=== PATIENT | male | born 1990 | race Caucasian/White ===

== ENCOUNTER 2021-12-19 18:30 | Emergency (ER) | payer SELFPAY ==
--- NOTE | ~2021-12-19 | XR_ITS ---
EXAMINATION: XR RIBS, RIGHT CLINICAL INFORMATION: Right rib injury. Pain. COMPARISON: None TECHNIQUE: 3 views of the right ribs were obtained. PA view of the chest. FINDINGS: Lungs are clear. No consolidation, pneumothorax, or pleural effusion. The cardiomediastinal silhouette and pulmonary vasculature are normal. There is a minimally displaced fracture of the right anterolateral eighth rib. XR/XR ribs RT min 3V w CXR1V IMPRESSION: Minimally displaced right anterolateral eighth rib fracture. Clear lungs.
[2021-12-19 19:35] VITALS: BP 134/90; PULSE 83; RESP 16; TEMP 36.8; O2SAT 97; BMI 54.9
--- NOTE | 2021-12-19 21:12 | ED.GENADULT ---
HPI - General Adult General Chief complaint: General Medical Stated complaint: rib INJ Time Seen by Provider: 12/19/21 20:47 Source: patient Mode of arrival: ambulatory Limitations: no limitations History of Present Illness HPI narrative: 31 y/o male presents to the ER for evaluation of right-sided rib pain for the last 2 weeks. He was playing football with his brother in tackled on his right side. He has had pain in the right rib area since. He reports hurts to take a deep breath, cough, sneeze and sleep at nighttime. He has been taking Tylenol and Motrin with some brief improvement. He denies any chest pain or shortness of breath. Pain is located his right lateral ribs and her worse with movement. He expected the pain to resolve by now so came to the ER for further evaluation. MD complaint: Right-sided rib pain status post football injury Onset (ago): week(s) (2) Location: chest Radiation: non-radiation Severity: moderate Severity scale (1-10): 7 Quality: stabbing and aching Pain Consistency: intermittent Relieving factors: rest Exacerbating factors: movement Associated symptoms: denies other symptoms Treatments prior to arrival: none Related Data Previous Rx's Medication Instructions Recorded ibuprofen 800 mg tablet 800 mg PO Q8H PRN pain #14 tabs 12/19/21 lidocaine 5 % topical patch 1 patch topical DAILY #15 ea 12/19/21 Allergies Allergy/AdvReac Type Severity Reaction Status Date / Time No Known Allergies Allergy Verified 12/19/21 19:35 [No Known Allergies*] Review of Systems Review of Systems: Constitutional: No Fever, No Chills Cardiovascular: + Chest Pain (right lateral), No SOB, No Orthopnea, No Edema Respiratory: No Cough, No Sputum, No Wheezing, No dyspnea Gastrointestinal: No Nausea, No Vomiting, No Diarrhea, No abdominal Pain Genitourinary: No Hematuria Musculoskeletal: No joint pain, No Myalgias Skin: No Skin Lesions, No rash Neuro: No Weakness, No Numbness, No Dizziness, No Headache Heme/Lymph: No Bruising PMFSH Social History Social History Advance Directives: No Physical Exam ED Vital Signs: Vital Signs - 24 hr 12/19/21 19:35 Temperature 98.3 F Pulse Rate 83 Respiratory Rate 16 Blood Pressure 134/90 H Pulse Oximetry 97 Oxygen Delivery Method Room Air BMI result Body Mass Index 54.9 Appearance: Alert. Oriented X3. No acute distress. HEENT: normal external inspection Neck: Normal inspection. Neck supple. CVS: Normal heart rate and rhythm. Pulses normal. Respiratory: No respiratory distress. No ecchymosis on anterior or lateral chest wall. Breath sounds normal. Slight splinting. Tenderness of the middle ribs along the axillary line, no crepitus. Abdomen: morbidly obese. Soft and nontender. +BS x4 Skin: Skin warm and dry. Normal skin color. Normal skin turgor. No rashes. Extremities: Atraumatic, normal range of motion x4. Neuro: Oriented X 3. Grossly normal, nonfocal. Course Course Course Narrative: 31-year-old male presents to the ER with right lateral rib pain status post football injury 2 weeks ago. His lungs are clear on examination. SpO2 97% on room air. Chest x-ray and rib x-ray done is showing a mildly displaced 8th right anteriolateral rib fracture. No pneumothorax. We discussed treatment of rib fractures, pneumonia precautions and pulmonary exercises. He is declining need for narcotic pain medication, has CDL licence. Will give prescription for ibuprofen 800 mg as well as Lidoderm patches. He is stable for discharge home, return precautions were discussed. Critical Care Time Critical Care Time Critical Care Time: No Discharge Plan Discharge Clinical Impression: Fracture of rib Patient Disposition: Home, Self-Care Instructions: Rib Fracture (ED) Additional Instructions: Your x-ray today showed a minimally displaced right anteriolateral 8th rib fracture. Rib fractures can take 4-6 weeks to fully heel. Take the prescribed medication as directed. It is important to take deep breaths several times per hour to help expand your lungs and prevent pneumonia. Prescriptions: New ibuprofen 800 mg tablet 800 mg PO Q8H PRN (Reason: pain) Qty: 14 0RF lidocaine 5 % adhesive patch,medicated 1 patch topical DAILY Qty: 15 0RF Rx Instructions: leave on most painful area for up to 12 hrs Stand Alone Forms: Work/School Release Interventions: ED Discharge Assessment Last Done: 12/19/21 21:29 Discharge Date/Time: 12/19/21 21:30
== END 2021-12-19 21:30 | disposition home or self-care (01) ==
PROVIDERS: Emergency Provider Internal Medicine
DX: S22.31XA Fracture of one rib, right side, initial encounter for closed fracture (principal); W50.0XXA Accidental hit or strike by another person, initial encounter; Y93.61 Activity, american tackle football; Y92.017 Garden or yard in single-family (private) house as the place of occurrence of the external cause; Y99.9 Unspecified external cause status
CPT/HCPCS: 71101; 99282; 99283

== ENCOUNTER 2022-05-09 16:09 | Inpatient (IN) | payer MEDICAID, SELFPAY ==
--- NOTE | ~2022-05-09 | CT_ITS ---
EXAMINATION: CT PELVIS WITHOUT CONTRAST CLINICAL INFORMATION: Abscess. COMPARISON: None TECHNIQUE: Helical scanning was performed with submillimeter collimation through the pelvis. Sagittal and coronal multiplanar 2-D reconstructions were obtained. This CT examination was performed using dose optimization techniques as appropriate, variously including the following: *Automated exposure control *Adjustment of mA and/or kV according to patient size (this includes techniques or standardized protocols for targeted exams where dose is matched to indication/reason for exam; i.e. extremities or head) *Use of iterative reconstruction technique DLP: 1494 mGy-cm FINDINGS: There is significant fat stranding in the left intergluteal region with scattered pockets of subcutaneous air for instance measuring up to 3.5 cm on sagittal image 83, series 6. An organized drainable fluid collection or abscess are not identified. Evaluation of perianal fistula is suboptimal in the absence of IV contrast and under distention of the rectum. The included portions of the bowel are within normal limits. The prostate gland is of normal size with symmetric seminal vesicles. The urinary bladder is adequately distended without significant abnormality. Enlarged fairly symmetric inguinal lymph nodes are likely reactive. No pelvic lymphadenopathy. No acute or aggressive appearing osseous abnormalities. CT/CT pelvis wo IV con IMPRESSION: 1. Fat stranding and pockets of subcutaneous air in the left intergluteal region concerning for cellulitis, necrotizing infection is not excluded. An organized drainable fluid collection or abscess is not identified. 2. Evaluation of perianal fistula is suboptimal in this examination, for which correlation with a dedicated pelvic MRI, perianal fistula protocol is recommended if clinically deemed appropriate. 3. Enlarged inguinal lymph nodes are likely reactive.
[2022-05-09 17:30] VITALS: BP 144/75; PULSE 135; RESP 20; TEMP 38; O2SAT 96; BMI 54.5
--- NOTE | 2022-05-09 17:32 | ED.FALL ---
HPI - Fall General Chief Complaint: Fever <TOBY Huang - Last Filed: 05/09/22 17:37> Stated Complaint: Fall/ Multiple Complaints <TOBY Huang - Last Filed: 05/09/22 17:37> Time Seen by Provider: 05/09/22 18:56 <TOBY Huang - Last Filed: 05/09/22 17:37> Source: patient <Jaswant Baptiste MD - Last Filed: 05/09/22 23:02> Mode of arrival: ambulatory <Jaswant Baptiste MD - Last Filed: 05/09/22 23:02> Limitations: no limitations <Jaswant Baptiste MD - Last Filed: 05/09/22 23:02> History of Present Illness HPI Narrative: Patient otherwise healthy, apparently slipped on the ice 4 days ago addendum the ground had a drywall screw there which punctured his left buttock since then patient noticed lytes in duration in that area notice pus discharge for last 2 days with chills , fever nausea and vomiting, body ache patient had tetanus shot about 5 years ago patient denied upper respiratory symptoms cough <Jaswant Baptiste MD - Last Filed: 05/09/22 23:02> Related Data Home Medications: Previous Rx's Medication Instructions Recorded ibuprofen 800 mg tablet 800 mg PO Q8H PRN pain #14 tabs 12/19/21 lidocaine 5 % topical patch 1 patch topical DAILY #15 ea 12/19/21 <TOBY Huang - Last Filed: 05/09/22 17:37> Allergies/Adverse Reactions: Allergies Allergy/AdvReac Type Severity Reaction Status Date / Time No Known Allergies Allergy Verified 12/19/21 19:35 [No Known Allergies*] <TOBY Huang - Last Filed: 05/09/22 17:37> Review of Systems Review of Systems: Yes all other systems are reviewed and are negative <Jaswant Baptiste MD - Last Filed: 05/09/22 23:02> [facility] Social History Social History: Social History Smoked in Last 30 Days: Yes Use of substances other than those prescribed or required for medical reasons: No Advance Directives: No Advance Directives Information Provided: No <TOBY Huang - Last Filed: 05/09/22 17:37> Physical Exam Vital Signs: Vital Signs: Last Vital Signs Temp 98.7 F 05/09/22 22:53 Pulse 105 H 05/09/22 22:53 Resp 16 05/09/22 22:53 BP 114/57 L 05/09/22 22:53 Pulse Ox 100 05/09/22 22:53 O2 Del Method 05/09/22 22:53 BMI result Body Mass Index 54.5 <TOBY Huang - Last Filed: 05/09/22 17:37> Vital Signs: Last Vital Signs Temp 98.7 F 05/09/22 22:53 Pulse 105 H 05/09/22 22:53 Resp 16 05/09/22 22:53 BP 114/57 L 05/09/22 22:53 Pulse Ox 100 05/09/22 22:53 O2 Del Method 05/09/22 22:53 BMI result Body Mass Index 54.5 <Jaswant Baptiste MD - Last Filed: 05/09/22 23:02> Appearance: Alert. Oriented X3. No acute distress. febrile Eyes: no pallor ENT: Pharynx normal. Oral Mucosa moist Neck: Normal inspection. Neck supple. CVS: Normal heart rate and rhythm. Pulses normal. Respiratory: No respiratory distress. Equal air entry bilateral, no wheezing/rales/rhonchi Abdomen: Soft and nontender. Bowel sounds are present, no mass palpable, no CVA tenderness Skin: Skin warm and dry. 10 x 10 cm indurated area left buttock Normal skin turgor. Extremities: No lower extremity edema. No calf tenderness Neuro: Oriented X 3. No motor deficit. No sensory deficit.No cerebellar signs , cranial nerves II-XII intact <Jaswant Baptiste MD - Last Filed: 05/09/22 23:02> Course Course Course Narrative: JESSIE 17:35PM - 31yoM presenting to the ER with complaints of redness/swelling and an abscess to the left buttock/rectal area that developed gradually after he had a mechanical fall on Friday where he slipped and fell on ice and a drywall nail punctured his left buttocks and he reports he has had some purulent drainage. He reports associated chills and subjective fevers. Reports he is UTD on Tetanus In the triage I do not see an obvious abscess he does have some cellulitis to the left buttocks. Plan: LABS, BLOOD CULTURES ORDERED. Patient will need labs will be sent to the ER for further evaluation treatment. <TOBY Huang - Last Filed: 05/09/22 17:37> Medications Administered Discontinued Medications Generic Name Dose Route Start Last Admin Trade Name Freq PRN Reason Stop Dose Admin Acetaminophen 975 mg 05/09/22 18:08 05/09/22 18:33 Acetaminophen 325 Mg Tablet PO 05/09/22 18:09 975 mg ONCE ONE Administration Sodium Chloride 1,000 mls @ 999 mls/hr 05/09/22 19:09 05/09/22 21:02 Ns IV 05/09/22 20:09 Infused .Q1H1M ONE Infusion Vancomycin HCl 2,000 mg in 520 mls @ 260 mls/hr 05/09/22 19:09 05/09/22 22:42 Vancomycin/Ns IV 05/09/22 21:08 Infused ONCE ONE Infusion Piperacillin Sod/Tazobactam 50 mls @ 100 mls/hr 05/09/22 19:09 05/09/22 20:21 Sod 3.375 gm/ Sodium Chloride IV 05/09/22 19:38 Infused ONCE ONE Infusion Ketorolac Tromethamine 30 mg 05/09/22 22:41 05/09/22 22:52 Ketorolac Tromethamine 30 Mg/Ml Vial IVPUSH 05/09/22 22:42 30 mg ONCE ONE Administration Lidocaine HCl 5 ml 05/09/22 19:45 05/09/22 20:30 Lidocaine Hcl 2% 2 Ml Vial INFILTRATI 05/09/22 19:46 5 ml ONCE ONE Administration <TOBY Huang - Last Filed: 05/09/22 17:37> Medications Administered Discontinued Medications Generic Name Dose Route Start Last Admin Trade Name Freq PRN Reason Stop Dose Admin Acetaminophen 975 mg 05/09/22 18:08 05/09/22 18:33 Acetaminophen 325 Mg Tablet PO 05/09/22 18:09 975 mg ONCE ONE Administration Sodium Chloride 1,000 mls @ 999 mls/hr 05/09/22 19:09 05/09/22 21:02 Ns IV 05/09/22 20:09 Infused .Q1H1M ONE Infusion Vancomycin HCl 2,000 mg in 520 mls @ 260 mls/hr 05/09/22 19:09 05/09/22 22:42 Vancomycin/Ns IV 05/09/22 21:08 Infused ONCE ONE Infusion Piperacillin Sod/Tazobactam 50 mls @ 100 mls/hr 05/09/22 19:09 05/09/22 20:21 Sod 3.375 gm/ Sodium Chloride IV 05/09/22 19:38 Infused ONCE ONE Infusion Ketorolac Tromethamine 30 mg 05/09/22 22:41 05/09/22 22:52 Ketorolac Tromethamine 30 Mg/Ml Vial IVPUSH 05/09/22 22:42 30 mg ONCE ONE Administration Lidocaine HCl 5 ml 05/09/22 19:45 05/09/22 20:30 Lidocaine Hcl 2% 2 Ml Vial INFILTRATI 05/09/22 19:46 5 ml ONCE ONE Administration <Jaswant Baptiste MD - Last Filed: 05/09/22 23:02> Procedures Abscess I/D Site: lower extremity (Left gluteal) <Jaswant Baptiste MD - Last Filed: 05/09/22 23:02> Side (if applicable): left <Jaswant Baptiste MD - Last Filed: 05/09/22 23:02> Local Anesthetic: lidocaine 2% <Jaswant Baptiste MD - Last Filed: 05/09/22 23:02> Amount of anesthesia used (mL): 6 <Jaswant Baptiste MD - Last Filed: 05/09/22 23:02> Technique: incised with blade <Jaswant Baptiste MD - Last Filed: 05/09/22 23:02> Amount of fluid expressed (mL): 5 <Jaswant Baptiste MD - Last Filed: 05/09/22 23:02> Sent for culture/gram staining?: Yes <Jaswant Baptiste MD - Last Filed: 05/09/22 23:02> Irrigation: No <Jaswant Baptiste MD - Last Filed: 05/09/22 23:02> Packing used?: iodoform <Jaswant Baptiste MD - Last Filed: 05/09/22 23:02> Medical Decision Making Lab Data Result Diagrams: : 05/09/22 18:31 05/09/22 18:31 <TOBY Huang - Last Filed: 05/09/22 17:37> Labs: Lab Results 05/09/22 05/09/22 05/09/22 Range/Units 18:30 18:31 18:31 WBC 30.3 H* (4.8-10.8) X10*3/uL RBC 5.10 (4.60-5.80) X10*6/uL Hgb 15.5 (14.0-18.0) g/dl Hct 42.9 (42.0-52.0) % MCV 84.1 (80.0-98.0) fL MCH 30.4 (27.0-33.0) pg MCHC 36.1 H (31.0-36.0) g/dl RDW 12.2 (11.0-16.0) % Plt Count 247 (160-400) X10*3/uL MPV 10.9 (9.4-12.4) fL Immature Gran % (Auto) 0.7 H (0.0-0.4) % Neut % (Auto) 87.1 H (45-73) % Lymph % (Auto) 6.5 L (20-40) % [place] % (Auto) 5.4 (2-11) % Eos % (Auto) 0.1 (0-4) % Baso % (Auto) 0.2 (0-2) % Lymph # (Auto) 2.0 (1.2-4.9) X10*3/uL [place] # (Auto) 1.6 H (0.1-1.2) X10*3/uL Eos # (Auto) 0.0 (0.0-0.4) X10*3/uL Baso # (Auto) 0.1 (0.0-0.2) X10*3/uL Abs Immat Gran (auto) 0.21 H (0.00-0.03) X10*3/uL Absolute Neuts (auto) 26.4 H (2.0-8.3) x10*3/uL Absolute Nucleated RBC 0.000 (0.0-0.012) X10*3/uL Nucleated RBC % (auto) 0.0 (0.0-0.2) /100WBC PT 14.4 H (10.0-13.1) SEC INR 1.2 H (0.9-1.1) Sodium (135-145) mmol/L Potassium (3.3-5.1) mmol/L Chloride (96-108) mmol/L Carbon Dioxide (22-29) mmol/L Anion Gap (12-20) BUN (9-16) mg/dL Creatinine (0.5-1.4) mg/dL Estim Creat Clear Calc Estimated GFR Random Glucose (60-115) mg/dL Lactic Acid 1.6 (0.5-2.0) mmol/L Calcium (8.4-10.2) mg/dL Magnesium (1.6-2.6) mg/dL Total Bilirubin (0.0-1.0) mg/dL AST (5-37) U/L ALT (0-40) U/L Alkaline Phosphatase (39-117) U/L Total Protein (6.5-8.0) g/dL Albumin (3.5-5.0) g/dL Influenza Type A (PCR) (Negative) Influenza Type B (PCR) (Negative) RSV RNA Qual (PCR) (Negative) SARS-CoV-2 RNA (RT-PCR) (Negative) 05/09/22 05/09/22 Range/Units 18:31 19:46 WBC (4.8-10.8) X10*3/uL RBC (4.60-5.80) X10*6/uL Hgb (14.0-18.0) g/dl Hct (42.0-52.0) % MCV (80.0-98.0) fL MCH (27.0-33.0) pg MCHC (31.0-36.0) g/dl RDW (11.0-16.0) % Plt Count (160-400) X10*3/uL MPV (9.4-12.4) fL Immature Gran % (Auto) (0.0-0.4) % Neut % (Auto) (45-73) % Lymph % (Auto) (20-40) % [place] % (Auto) (2-11) % Eos % (Auto) (0-4) % Baso % (Auto) (0-2) % Lymph # (Auto) (1.2-4.9) X10*3/uL [place] # (Auto) (0.1-1.2) X10*3/uL Eos # (Auto) (0.0-0.4) X10*3/uL Baso # (Auto) (0.0-0.2) X10*3/uL Abs Immat Gran (auto) (0.00-0.03) X10*3/uL Absolute Neuts (auto) (2.0-8.3) x10*3/uL Absolute Nucleated RBC (0.0-0.012) X10*3/uL Nucleated RBC % (auto) (0.0-0.2) /100WBC PT (10.0-13.1) SEC INR (0.9-1.1) Sodium 132 L (135-145) mmol/L Potassium 3.9 (3.3-5.1) mmol/L Chloride 100 (96-108) mmol/L Carbon Dioxide 23 (22-29) mmol/L Anion Gap 13 (12-20) BUN 11 (9-16) mg/dL Creatinine 0.91 (0.5-1.4) mg/dL Estim Creat Clear Calc 189.2 Estimated GFR > 60 Random Glucose 126 H (60-115) mg/dL Lactic Acid (0.5-2.0) mmol/L Calcium 8.6 (8.4-10.2) mg/dL Magnesium 1.7 (1.6-2.6) mg/dL Total Bilirubin 1.3 H (0.0-1.0) mg/dL AST 14 (5-37) U/L ALT 21 (0-40) U/L Alkaline Phosphatase 66 (39-117) U/L Total Protein 6.9 (6.5-8.0) g/dL Albumin 3.9 (3.5-5.0) g/dL Influenza Type A (PCR) NEGATIVE (Negative) Influenza Type B (PCR) NEGATIVE (Negative) RSV RNA Qual (PCR) NEGATIVE (Negative) SARS-CoV-2 RNA (RT-PCR) NEGATIVE (Negative) <TOBY Huang - Last Filed: 05/09/22 17:37> Lab Results 05/09/22 05/09/22 05/09/22 Range/Units 18:30 18:31 18:31 WBC 30.3 H* (4.8-10.8) X10*3/uL RBC 5.10 (4.60-5.80) X10*6/uL Hgb 15.5 (14.0-18.0) g/dl Hct 42.9 (42.0-52.0) % MCV 84.1 (80.0-98.0) fL MCH 30.4 (27.0-33.0) pg MCHC 36.1 H (31.0-36.0) g/dl RDW 12.2 (11.0-16.0) % Plt Count 247 (160-400) X10*3/uL MPV 10.9 (9.4-12.4) fL Immature Gran % (Auto) 0.7 H (0.0-0.4) % Neut % (Auto) 87.1 H (45-73) % Lymph % (Auto) 6.5 L (20-40) % [place] % (Auto) 5.4 (2-11) % Eos % (Auto) 0.1 (0-4) % Baso % (Auto) 0.2 (0-2) % Lymph # (Auto) 2.0 (1.2-4.9) X10*3/uL [place] # (Auto) 1.6 H (0.1-1.2) X10*3/uL Eos # (Auto) 0.0 (0.0-0.4) X10*3/uL Baso # (Auto) 0.1 (0.0-0.2) X10*3/uL Abs Immat Gran (auto) 0.21 H (0.00-0.03) X10*3/uL Absolute Neuts (auto) 26.4 H (2.0-8.3) x10*3/uL Absolute Nucleated RBC 0.000 (0.0-0.012) X10*3/uL Nucleated RBC % (auto) 0.0 (0.0-0.2) /100WBC PT 14.4 H (10.0-13.1) SEC INR 1.2 H (0.9-1.1) Sodium (135-145) mmol/L Potassium (3.3-5.1) mmol/L Chloride (96-108) mmol/L Carbon Dioxide (22-29) mmol/L Anion Gap (12-20) BUN (9-16) mg/dL Creatinine (0.5-1.4) mg/dL Estim Creat Clear Calc Estimated GFR Random Glucose (60-115) mg/dL Lactic Acid 1.6 (0.5-2.0) mmol/L Calcium (8.4-10.2) mg/dL Magnesium (1.6-2.6) mg/dL Total Bilirubin (0.0-1.0) mg/dL AST (5-37) U/L ALT (0-40) U/L Alkaline Phosphatase (39-117) U/L Total Protein (6.5-8.0) g/dL Albumin (3.5-5.0) g/dL Influenza Type A (PCR) (Negative) Influenza Type B (PCR) (Negative) RSV RNA Qual (PCR) (Negative) SARS-CoV-2 RNA (RT-PCR) (Negative) 05/09/22 05/09/22 Range/Units 18:31 19:46 WBC (4.8-10.8) X10*3/uL RBC (4.60-5.80) X10*6/uL Hgb (14.0-18.0) g/dl Hct (42.0-52.0) % MCV (80.0-98.0) fL MCH (27.0-33.0) pg MCHC (31.0-36.0) g/dl RDW (11.0-16.0) % Plt Count (160-400) X10*3/uL MPV (9.4-12.4) fL Immature Gran % (Auto) (0.0-0.4) % Neut % (Auto) (45-73) % Lymph % (Auto) (20-40) % [place] % (Auto) (2-11) % Eos % (Auto) (0-4) % Baso % (Auto) (0-2) % Lymph # (Auto) (1.2-4.9) X10*3/uL [place] # (Auto) (0.1-1.2) X10*3/uL Eos # (Auto) (0.0-0.4) X10*3/uL Baso # (Auto) (0.0-0.2) X10*3/uL Abs Immat Gran (auto) (0.00-0.03) X10*3/uL Absolute Neuts (auto) (2.0-8.3) x10*3/uL Absolute Nucleated RBC (0.0-0.012) X10*3/uL Nucleated RBC % (auto) (0.0-0.2) /100WBC PT (10.0-13.1) SEC INR (0.9-1.1) Sodium 132 L (135-145) mmol/L Potassium 3.9 (3.3-5.1) mmol/L Chloride 100 (96-108) mmol/L Carbon Dioxide 23 (22-29) mmol/L Anion Gap 13 (12-20) BUN 11 (9-16) mg/dL Creatinine 0.91 (0.5-1.4) mg/dL Estim Creat Clear Calc 189.2 Estimated GFR > 60 Random Glucose 126 H (60-115) mg/dL Lactic Acid (0.5-2.0) mmol/L Calcium 8.6 (8.4-10.2) mg/dL Magnesium 1.7 (1.6-2.6) mg/dL Total Bilirubin 1.3 H (0.0-1.0) mg/dL AST 14 (5-37) U/L ALT 21 (0-40) U/L Alkaline Phosphatase 66 (39-117) U/L Total Protein 6.9 (6.5-8.0) g/dL Albumin 3.9 (3.5-5.0) g/dL Influenza Type A (PCR) NEGATIVE (Negative) Influenza Type B (PCR) NEGATIVE (Negative) RSV RNA Qual (PCR) NEGATIVE (Negative) SARS-CoV-2 RNA (RT-PCR) NEGATIVE (Negative) <Jaswant Baptiste MD - Last Filed: 05/09/22 23:02> Discharge Plan Discharge Clinical Impression: Abscess, gluteal, left, Cellulitis <TOBY Huang - Last Filed: 05/09/22 17:37> Patient Disposition: Admitted As Inpatient <TOBY Huang - Last Filed: 05/09/22 17:37>
[2022-05-09] MEDS: Acetaminophen 325 MG TABLET 975 MG PO (18:33)
[2022-05-09 18:35] LABS: MANUAL DIFF FLAG NO
[2022-05-09 18:42] LABS: Basophils Absolute Auto 0.1 X10*3/uL (0.0-0.2); Basophils Percent Auto 0.2 % (0-2); Eosinophils Percent Auto 0.1 % (0-4); Hematocrit 42.9 % (42.0-52.0); Hemoglobin 15.5 g/dl (14.0-18.0); Imm Gran Abs Auto 0.21 X10*3/uL (0.00-0.03); Imm Gran Pct Auto 0.7 % (0.0-0.4); Lymphocytes Percent Auto 6.5 % (20-40); Mean Corpuscular HGB Conc 36.1 g/dl (31.0-36.0); Mean Corpuscular Hemoglobin 30.4 pg (27.0-33.0); Mean Corpuscular Volume 84.1 fL (80.0-98.0); Mean Platelet Volume 10.9 fL (9.4-12.4); Monocytes Absolute Auto 1.6 X10*3/uL (0.1-1.2); Monocytes Percent Auto 5.4 % (2-11); Neutrophils Absolute Auto 26.4 x10*3/uL (2.0-8.3); Neutrophils Percent Auto 87.1 % (45-73); Platelet Count 247 X10*3/uL (160-400); Red Cell Distribution Width 12.2 % (11.0-16.0); SCAN SMEAR FLAG 1
[2022-05-09 18:44] LABS: INTERNATIONAL NORM RATIO 1.2 (0.9-1.1); Prothrombin Time 14.4 SEC (10.0-13.1)
[2022-05-09 18:47] LABS: White Blood Count 30.3 X10*3/uL (4.8-10.8)
[2022-05-09 18:53] LABS: Lactic Acid 1.6 mmol/L (0.5-2.0)
[2022-05-09 18:58] LABS: Alanine Aminotransferase 21 U/L (0-40); Albumin Level 3.9 g/dL (3.5-5.0); Alkaline Phosphatase 66 U/L (39-117); Anion Gap 13 (12-20); Aspartate Amino Transferase 14 U/L (5-37); Bilirubin Total 1.3 mg/dL (0.0-1.0); Blood Urea Nitrogen 11 mg/dL (9-16); Calcium 8.6 mg/dL (8.4-10.2); Carbon Dioxide 23 mmol/L (22-29); Chloride 100 mmol/L (96-108); Creatinine Clr Calc Pharmacy 189.2; Estimated Glomerular Filt Rate > 60; Glucose Random 126 mg/dL (60-115); Magnesium 1.7 mg/dL (1.6-2.6); Potassium 3.9 mmol/L (3.3-5.1); Sodium 132 mmol/L (135-145); Total Protein 6.9 g/dL (6.5-8.0)
[2022-05-09] MEDS: Piperacillin Sodium/Tazobactam 3.375 GM in 0.9 % Sodium Chloride 50 ML IV (19:40)
[2022-05-09] MEDS: 0.9 % Sodium Chloride 1,000 ML 999 ML IV (19:41)
[2022-05-09 19:43] VITALS: BP 120/53; PULSE 118; RESP 20; TEMP 37.7
[2022-05-09 20:30] LABS: Influenza A PCR NEGATIVE (Negative); Influenza B PCR NEGATIVE (Negative); Resp Syncy Virus RNA Qual PCR NEGATIVE (Negative); SARS COV2 PCR INHOUSE NEGATIVE (Negative)
[2022-05-09 21:18] VITALS: BP 117/54; PULSE 110; RESP 20; TEMP 37.3; O2SAT 97
[2022-05-09] MEDS: Ketorolac Tromethamine 30 MG/ML VIAL IVPUSH (22:52)
[2022-05-09 22:53] VITALS: BP 114/57; PULSE 105; RESP 16; TEMP 37.1; O2SAT 100
--- NOTE | 2022-05-10 01:17 | P.HPHOSP_ITS ---
History of Present Illness Date of Service: 05/10/22 Chief Complaint: abscess with no significant past medical history presents to the hospital with complaints of right gluteal pain, abscess. Patient reports that on Friday he slipped on ice and fell on his bottom, he feels that he fell on a nail or screw, he then started developing swelling in his left gluteal region with the lump progressively getting bigger and harder as well as pain. Patient denies any fever, no chills, he reports no abdominal pain nausea or vomiting. He did notice some drainage from the lump in his gluteal region, nonbloody. Patient denies any chest pain, no shortness of breath, no urinary symptoms and no lower extremity edema. On arrival to the ED patient found to have a temperature of 100.4 degrees, heart rate of 135, blood pressure stable Labs are significant for WBC count of 30.3, INR of 1.2, total bili of 1.3, labs otherwise unremarkable ED physician before and drainage in the ED. After that patient underwent CT of the pelvis CT of the pelvis shows fat stranding and pockets of subcutaneous air in the left intergluteal region concerning for cellulitis, necrotizing infection is not excluded. No organized drainable fluid collection or abscess. Also enlarged inguinal lymph nodes. Review of Systems Review of Systems: Yes all other systems are reviewed and are negative PMFSH Medical History No pertinent past medical history Family History Other No family history of coronary artery disease Surgical History No pertinent past surgical history Social History Household Members: Spouse Housing: Apartment Patient Tobacco Use Status: Current everyday Tobacco user Tobacco use type: Cigarette Cigarette Packs Per Day: 1 Cigarettes Per Day: 20.0 Smoked in Last 30 Days: Yes Patient Interested in Nicotine Replacement: No Patient Given Instructions on How to Stop Smoking: No Second Hand Smoke Exposure: No Use of substances other than those prescribed or required for medical reasons: No Have you been hit, kicked, punched, or otherwise hurt by someone within the past year? If so, by whom?: No Do you feel safe in your current relationship?: No Is there a partner from a previous relationship who is making you feel unsafe now?: No Are you made to feel afraid or neglected: No Advance Directives: No Advance Directives Information Provided: No Do you have thoughts of harming others: None Do you have a plan to hurt others: No Plan How much weight loss: Not applicable Eating poorly because of decreased appetite: No Nutrition Risks: No Nutritional Risk Meds Allergies Allergy/AdvReac Type Severity Reaction Status Date / Time No Known Allergies Allergy Verified 12/19/21 19:35 [No Known Allergies*] Active Medications: Current Medications Pharmacy Consult (Consult Rx Vancomycin Dosing) 1 each MISCELLANE DAILY PRN PRN Reason: Consult order Home Medications Medication Instructions Recorded Confirmed Last Taken Type No Known Home Meds 05/10/22 05/10/22 Unknown History Physical Exam Vital Signs and Narrative: Vital Signs: Last Vital Signs Temp 98.7 F 05/09/22 22:53 Pulse 105 H 05/09/22 22:53 Resp 16 05/09/22 22:53 BP 114/57 L 05/09/22 22:53 Pulse Ox 100 05/09/22 22:53 O2 Del Method 05/09/22 22:53 BMI result Body Mass Index 54.5 Const: General: cooperative and no acute distress Orientation/consciousness: patient oriented x3 Eyes: General: appearance normal, both eyes and all related structures Resp: Effort & Inspection: normal respiratory effort Auscultation: clear to auscultation bilaterally Cardio: Rate: regular rate Rhythm: regular rhythm GI: Palpation (GI): Soft to palpation Auscultation: normal bowel sounds Skin: Other: left medial gluteal region with erythema, warmth, tenderness, Neuro: General: patient oriented x3 Cognition (Neuro): normal cognition Extrem: General: Yes normal to inspection and Yes no pedal edema Results Labs CBC and Chem 7: 05/09/22 18:31 05/09/22 18:31 Labs: Laboratory Results - last 24 hr 05/09/22 05/09/22 05/09/22 18:30 18:31 18:31 MCV 84.1 MCH 30.4 MCHC 36.1 H RDW 12.2 Plt Count 247 MPV 10.9 Immature Gran % (Auto) 0.7 H Neut % (Auto) 87.1 H Lymph % (Auto) 6.5 L [place] % (Auto) 5.4 Eos % (Auto) 0.1 Baso % (Auto) 0.2 Lymph # (Auto) 2.0 [place] # (Auto) 1.6 H Eos # (Auto) 0.0 Baso # (Auto) 0.1 Abs Immat Gran (auto) 0.21 H Absolute Neuts (auto) 26.4 H Absolute Nucleated RBC 0.000 Nucleated RBC % (auto) 0.0 PT 14.4 H INR 1.2 H Anion Gap Estim Creat Clear Calc Estimated GFR Random Glucose Lactic Acid 1.6 Calcium Magnesium Total Bilirubin AST ALT Alkaline Phosphatase Total Protein Albumin Influenza Type A (PCR) Influenza Type B (PCR) RSV RNA Qual (PCR) SARS-CoV-2 RNA (RT-PCR) 05/09/22 05/09/22 18:31 19:46 MCV MCH MCHC RDW Plt Count MPV Immature Gran % (Auto) Neut % (Auto) Lymph % (Auto) [place] % (Auto) Eos % (Auto) Baso % (Auto) Lymph # (Auto) [place] # (Auto) Eos # (Auto) Baso # (Auto) Abs Immat Gran (auto) Absolute Neuts (auto) Absolute Nucleated RBC Nucleated RBC % (auto) PT INR Anion Gap 13 Estim Creat Clear Calc 189.2 Estimated GFR > 60 Random Glucose 126 H Lactic Acid Calcium 8.6 Magnesium 1.7 Total Bilirubin 1.3 H AST 14 ALT 21 Alkaline Phosphatase 66 Total Protein 6.9 Albumin 3.9 Influenza Type A (PCR) NEGATIVE Influenza Type B (PCR) NEGATIVE RSV RNA Qual (PCR) NEGATIVE SARS-CoV-2 RNA (RT-PCR) NEGATIVE Assessment and Plan (1) Cellulitis, gluteal: Status: Acute (2) Sepsis: Status: Acute (3) Abscess, gluteal, left: Status: Acute Plan this is a 31-year-old male with no significant past medical history presents to the hospital found to have cellulitis # sepsis - likely secondary to cellulitis/ abscess of - has leukocytosis, febrile, tachycardic - will treat with IV antibiotics - follow cultures - lactic acid normal # cellulitis of gluteal left/ abscess - had drainage in the ED - CT concerning for cellulitis, necrotizing fasciitis cannot be ruled out but less likely as patient has been having this since Friday with no significant spreading - will treat with IV antibiotics - folic cultures - with general surgery consulted DVT prophylaxis: Lovenox given patient's sepsis requiring IV antibiotics patient will require minimum 2 night inpatient hospital stay for further management and monitoring Time Spent With Patient Time: Total time managing care of this patient today ____ minutes. Quality Stroke Does the patient have a stroke diagnosis?: No VTE Prior VTE?: No VTE Risk Level:: Medical - moderate - high VTE Device Contraindication: Treatment Not Indicated VTE Drug Contraindication: N/A - Med Ordered
[2022-05-10] MEDS: Enoxaparin Sodium 40 MG/0.4 ML SYRINGE SUBCUT ×3 (01:43→22:18)
--- NOTE | 2022-05-10 02:51 | PC.NURSE ---
Pt. moved over from [facility]. Pt. resting in stretcher. Obtained hospital bed for pt. Called report to med-surge room 343.
[2022-05-10 03:07] VITALS: BMI 55.3
[2022-05-10 03:11] VITALS: BP 126/58; PULSE 104; RESP 18; TEMP 37.1; O2SAT 98
[2022-05-10] MEDS: Acetaminophen 325 MG TABLET 650 MG PO ×2 (03:21→16:21)
[2022-05-10 05:52] LABS: MANUAL DIFF FLAG NO
[2022-05-10 05:59] LABS: Basophils Absolute Auto 0.1 X10*3/uL (0.0-0.2); Basophils Percent Auto 0.3 % (0-2); Eosinophils Absolute Auto 0.1 X10*3/uL (0.0-0.4); Eosinophils Percent Auto 0.3 % (0-4); Hematocrit 37.9 % (42.0-52.0); Hemoglobin 13.7 g/dl (14.0-18.0); Imm Gran Abs Auto 0.14 X10*3/uL (0.00-0.03); Imm Gran Pct Auto 0.6 % (0.0-0.4); Lymphocytes Absolute Auto 2.8 X10*3/uL (1.2-4.9); Lymphocytes Percent Auto 11.8 % (20-40); Mean Corpuscular HGB Conc 36.1 g/dl (31.0-36.0); Mean Corpuscular Hemoglobin 30.9 pg (27.0-33.0); Mean Corpuscular Volume 85.6 fL (80.0-98.0); Mean Platelet Volume 11.2 fL (9.4-12.4); Monocytes Absolute Auto 1.3 X10*3/uL (0.1-1.2); Monocytes Percent Auto 5.3 % (2-11); Neutrophils Absolute Auto 19.3 x10*3/uL (2.0-8.3); Neutrophils Percent Auto 81.7 % (45-73); Platelet Count 230 X10*3/uL (160-400); Red Blood Count 4.43 X10*6/uL (4.60-5.80); Red Cell Distribution Width 12.1 % (11.0-16.0); White Blood Count 23.6 X10*3/uL (4.8-10.8)
[2022-05-10 06:20] LABS: Anion Gap 13 (12-20); Blood Urea Nitrogen 15 mg/dL (9-16); Calcium 8.6 mg/dL (8.4-10.2); Carbon Dioxide 24 mmol/L (22-29); Chloride 103 mmol/L (96-108); Creatinine Clr Calc Pharmacy 199.7; Estimated Glomerular Filt Rate > 60; Glucose Random 126 mg/dL (60-115); Potassium 3.4 mmol/L (3.3-5.1); Sodium 137 mmol/L (135-145)
--- NOTE | 2022-05-10 06:23 | PHA.PROG ---
Admission Date/Time: May 10, 2022 01:14 Indication: SKIN/SKIN STRUCTURE Weight in k.9 kg Adjusted body weight in K Dunn body weight in Kg: Obesity Dosing Indication % IBW: Serum Creatinine - Last 168 Hours 05/09/22 05/10/22 18:31 05:03 Creatinine 0.91 0.87 Estimated CrCl and GFR - Last 168 Hours 05/09/22 05/10/22 18:31 05:03 Estim Creat Clear Calc 189.2 199.7 Estimated GFR > 60 > 60 Vancomycin Loading Dose: 2000MG Current Vancomycin Dosing Regimen: 1250 MG Q12H Vancomycin Monitoring using AUC goal of 400 - 600 range with trough as surrogate marker: AUC 555, TROUGH 15.5 Date and Time for next Vancomycin Level to be drawn: 05/11 @0600 Pharmacist Comments on Vancomycin Plan: - OBESE MODEL Vancomycin dosing will take advantage of [employer] as a clinical decision support tool that uses Bayesian modeling to calculate individual patient's pharmacokinetic parameters and forecast the patient's drug concentration time course with the target goal AUC 24 range of 400 - 600 mg/L/hr.
[2022-05-10 07:41] VITALS: BP 131/70; PULSE 100; RESP 18; TEMP 37.3; O2SAT 97
[2022-05-10] MEDS: vancomycin HCL 1,250 MG in 0.9 % Sodium Chloride 250 ML 166.67 MG IV ×2 (07:51→20:34)
[2022-05-10] MEDS: 0.9 % Sodium Chloride Flush 3 ML SYRINGE IVFLUSH ×3 (07:59→20:39)
--- NOTE | 2022-05-10 09:29 | PM.CNGS ---
History of Present Illness Consult details Consult date: 05/10/22 <MARCOS Mercer Last Filed: 05/10/22 10:49> Requesting physician: Jessica Buckner <MARCOS Mercer Last Filed: 05/10/22 10:49> Narrative: 31 year old male with no significant past medical history who presented to the hospital with complaints of right gluteal pain and fever. Patient reports that on Friday he slipped on ice and fell on his bottom. He feels that he fell on a nail or screw. The following day he developed pain and started to develop swelling in his left gluteal region. He reports the pain got worse and the lump progressively got bigger. He reports subjective fevers and chills that began Friday. He reports he noticed a small amount of drainage from the area. He says his girlfriend made him come to the ED. He was found to have a low grade fever with a WBC count of 30. The ED provider performed I&D at bedside and packed the wound. CT of the pelvis was then performed which showed fat stranding and pockets of subcutaneous air in the left intergluteal region. He was admitted to medicine for further treatment of the gluteal abscess and cellulitis. He is on IV vanco. Surgery was consulted for further management of the abscess. He feels better after the drainage. He had a tdap 5 years ago. <MARCOS Mercer Last Filed: 05/10/22 10:49> Review of Systems Constitutional: Constitutional: Reports as per HPI <MARCOS Mercer Last Filed: 05/10/22 10:49> ENT: Denies dizziness <MARCOS Mercer Last Filed: 05/10/22 10:49> Cardiovascular: Cardiovascular: Denies chest pain and Denies dyspnea <MARCOS Mercer Last Filed: 05/10/22 10:49> Respiratory: Respiratory: Denies cough and Denies dyspnea <MARCOS Mercer Last Filed: 05/10/22 10:49> Gastrointestinal: Gastrointestinal: Denies abdominal pain, Denies diarrhea, Denies nausea and Denies vomiting <MARCOS Mercer Last Filed: 05/10/22 10:49> Genitourinary: Genitourinary: Denies hematuria and Denies dysuria <Munira Hurley PA-C Last Filed: 05/10/22 10:49> Integumentary/Breasts: Skin/Breast: Denies rash and Denies jaundice <Munira Hurley PA-C - Last Filed: 05/10/22 10:49> Neurologic: Denies dizziness <Munira Hurley PA-C Last Filed: 05/10/22 10:49> PMF Past Medical History Medical History: Medical History No pertinent past medical history <Munira uHrley PA-C - Last Filed: 05/10/22 10:49> Family History Family History: Family History Other No family history of coronary artery disease <Munira Hurley PA-C - Last Filed: 05/10/22 10:49> Surgical History Surgical History: Surgical History No pertinent past surgical history <Munira Hurley PA-C Last Filed: 05/10/22 10:49> Social History Social History: Social History Household Members: Spouse Housing: Apartment Patient Tobacco Use Status: Current everyday Tobacco user Tobacco use type: Cigarette Cigarette Packs Per Day: 1 Cigarettes Per Day: 20.0 Smoked in Last 30 Days: Yes Patient Interested in Nicotine Replacement: No Patient Given Instructions on How to Stop Smoking: No Second Hand Smoke Exposure: No Use of substances other than those prescribed or required for medical reasons: No Have you been hit, kicked, punched, or otherwise hurt by someone within the past year? If so, by whom?: No Do you feel safe in your current relationship?: No Is there a partner from a previous relationship who is making you feel unsafe now?: No Are you made to feel afraid or neglected: No Advance Directives: No Advance Directives Information Provided: No Do you have thoughts of harming others: None Do you have a plan to hurt others: No Plan How much weight loss: Not applicable Eating poorly because of decreased appetite: No Nutrition Risks: No Nutritional Risk service: No Current occupational status: unemployed <Munira Hurley PA-C - Last Filed: 05/10/22 10:49> Meds Allergies/Adverse reactions: Allergies Allergy/AdvReac Type Severity Reaction Status Date / Time No Known Allergies Allergy Verified 12/19/21 19:35 [No Known Allergies*] <Munira Hurley PA-C - Last Filed: 05/10/22 10:49> Active Medications: Current Medications Acetaminophen (Acetaminophen 325 Mg Tablet) 650 mg PO Q6H PRN PRN Reason: Pain, Mild (Pain Scale 1-3) Last Admin: 05/10/22 03:21 Dose: 650 mg Calcium Carbonate (Calcium Carbonate 750 Mg Tab.Chew) 750 mg PO Q4H PRN PRN Reason: heartburn Docusate Sodium (Docusate Sodium 100 Mg Capsule) 100 mg PO DAILY PRN PRN Reason: Constipation Enoxaparin Sodium (Enoxaparin Sodium 40 Mg/0.4 Ml Syringe) 40 mg SUBCUT Q12H [facility] Last Admin: 05/10/22 01:43 Dose: 40 mg Vancomycin HCl 1,250 mg/ (Sodium Chloride) 250 mls @ 166.667 mls/hr IV Q12H [facility] Last Admin: 05/10/22 07:51 Dose: 166.67 mls/hr Ondansetron HCl (Ondansetron Hcl 4 Mg/2 Ml Vial) 4 mg IVPUSH Q8H PRN PRN Reason: Nausea and Vomiting Pharmacy Consult (Consult Rx Vancomycin Dosing) 1 each MISCELLANE DAILY PRN PRN Reason: Consult order Pharmacy Consult (Consult Rx Vancomycin Dosing) 1 each MISCELLANE DAILY PRN PRN Reason: Consult order Sodium Chloride (0.9 % Sodium Chloride Flush 3 Ml Syringe) 3 ml IVFLUSH QSHIFT [facility] Last Admin: 05/10/22 07:59 Dose: 3 ml <Munira Hurley PA-C - Last Filed: 05/10/22 10:49> Home medications: Home Medications Medication Instructions Recorded Confirmed Last Taken Type No Known Home Meds 05/10/22 05/10/22 Unknown History <Munira Hurley PA-C - Last Filed: 05/10/22 10:49> Physical Exam Vital Signs: Vital Signs: Last Vital Signs Temp 99.1 F 05/10/22 07:41 Pulse 100 05/10/22 07:41 Resp 18 05/10/22 07:41 BP 131/70 05/10/22 07:41 Pulse Ox 97 05/10/22 07:41 O2 Del Method 05/10/22 07:41 BMI result Body Mass Index 55.3 <Munira Hurley PA-C - Last Filed: 05/10/22 10:49> Const: General: comfortable, no acute distress and alert <Munira Hurley PA-C - Last Filed: 05/10/22 10:49> Nutritional Appearance: obese <Munira Hurley PA-C - Last Filed: 05/10/22 10:49> Orientation/consciousness: patient oriented x3 <Munira Hurley PA-C - Last Filed: 05/10/22 10:49> Resp: Effort & Inspection: normal respiratory effort <Munira Hurley PA-C - Last Filed: 05/10/22 10:49> GI: Inspection: No distended <Munira Hurley PA-C - Last Filed: 05/10/22 10:49> Palpation (GI): Soft to palpation and nontender <Munira Hurley PA-C - Last Filed: 05/10/22 10:49> Skin: Other: left buttocks- large amount of edema mid gluteal cleft extending superiorly, inferiorly and medially; I&D site open with packing and draining small amount of pus, no fluctuance, crepitus, necrosis or induration appreciated, small superficial skin breakdown medial to I&D site <Munira Hurley PA-C - Last Filed: 05/10/22 10:49> Neuro: General: patient oriented x3 <Munira Hurley PA-C - Last Filed: 05/10/22 10:49> Extrem: General: No no pedal edema <Munira Hurley PA-C - Last Filed: 05/10/22 10:49> Results Labs Result diagrams: : 05/10/22 05:03 05/10/22 05:03 <Munira Hurley PA-C - Last Filed: 05/10/22 10:49> Labs: Abnormal lab results 05/09/22 05/09/22 05/09/22 Range/Units 18:31 18:31 18:31 WBC 30.3 H* (4.8-10.8) X10*3/uL RBC (4.60-5.80) X10*6/uL Hgb (14.0-18.0) g/dl Hct (42.0-52.0) % MCHC 36.1 H (31.0-36.0) g/dl Immature Gran % (Auto) 0.7 H (0.0-0.4) % Neut % (Auto) 87.1 H (45-73) % Lymph % (Auto) 6.5 L (20-40) % [place] # (Auto) 1.6 H (0.1-1.2) X10*3/uL Abs Immat Gran (auto) 0.21 H (0.00-0.03) X10*3/uL Absolute Neuts (auto) 26.4 H (2.0-8.3) x10*3/uL PT 14.4 H (10.0-13.1) SEC INR 1.2 H (0.9-1.1) Sodium 132 L (135-145) mmol/L Random Glucose 126 H (60-115) mg/dL Total Bilirubin 1.3 H (0.0-1.0) mg/dL 05/10/22 05/10/22 Range/Units 05:03 05:03 WBC 23.6 H (4.8-10.8) X10*3/uL RBC 4.43 L (4.60-5.80) X10*6/uL Hgb 13.7 L (14.0-18.0) g/dl Hct 37.9 L (42.0-52.0) % MCHC 36.1 H (31.0-36.0) g/dl Immature Gran % (Auto) 0.6 H (0.0-0.4) % Neut % (Auto) 81.7 H (45-73) % Lymph % (Auto) 11.8 L (20-40) % [place] # (Auto) 1.3 H (0.1-1.2) X10*3/uL Abs Immat Gran (auto) 0.14 H (0.00-0.03) X10*3/uL Absolute Neuts (auto) 19.3 H (2.0-8.3) x10*3/uL PT (10.0-13.1) SEC INR (0.9-1.1) Sodium (135-145) mmol/L Random Glucose 126 H (60-115) mg/dL Total Bilirubin (0.0-1.0) mg/dL Short CBC 05/09/22 05/10/22 Range/Units 18:31 05:03 WBC 30.3 H* 23.6 H (4.8-10.8) X10*3/uL Hgb 15.5 13.7 L (14.0-18.0) g/dl Hct 42.9 37.9 L (42.0-52.0) % Plt Count 247 230 (160-400) X10*3/uL BMP 05/09/22 05/10/22 18:31 05:03 Sodium 132 L 137 Potassium 3.9 3.4 Chloride 100 103 Carbon Dioxide 23 24 BUN 11 15 Creatinine 0.91 0.87 Calcium 8.6 8.6 Liver Function 05/09/22 Range/Units 18:31 Total Bilirubin 1.3 H (0.0-1.0) mg/dL AST 14 (5-37) U/L ALT 21 (0-40) U/L Alkaline Phosphatase 66 (39-117) U/L Albumin 3.9 (3.5-5.0) g/dL All other labs normal. <Munira Hurley PA-C - Last Filed: 05/10/22 10:49> Imaging Additional studies: CT scan pelvis 1.? Fat stranding and pockets of subcutaneous air in the left intergluteal region concerning for cellulitis, necrotizing infection is not excluded. An organized drainable fluid collection or abscess is not identified. 2.? Evaluation of perianal fistula is suboptimal in this examination, for which correlation with a dedicated pelvic MRI, perianal fistula protocol is recommended if clinically deemed appropriate. 3.? Enlarged inguinal lymph nodes are likely reactive. <Munira Hurley PA-C - Last Filed: 05/10/22 10:49> Assessment and Plan (1) Abscess, gluteal, left: Status: Acute <Munira Hurley PA-C - Last Filed: 05/10/22 10:49> had a gluteal abscess on left I and D done by ED staff pt not a diabetic packing in place no signficant residual induration plan to remove packing tomorrow IV abx seen and examined - agree w/ TOBY Hurley <Ten Thomson MD - Last Filed: 05/10/22 13:45> 31 year old healthy male admitted with cellulitis and abscess of left gluteal cleft. He underwent I&D in the ED. It appears to be appropriately drained as there are no further areas of fluctuance or crepitus, no necrosis. It is very edematous but is actually very soft and without induration. His WBC count has significantly improved. Do not feel any necrotizing infection is present at this time given the improvement with drainage & antibiotics. No further I&D or debridement warranted at this time. Continue IV abx, local wound care with dry sterile dressing. Will continue to follow and remove packing tomorrow. Case discussed with Dr. Thomson. <Munira Hurley PA-C - Last Filed: 05/10/22 10:49> Time Spent With Patient Time: Total time managing care of this patient today ____ minutes. <Munira Hurley PA-C - Last Filed: 05/10/22 10:49> Procedures Date of Service Date of Service: 05/10/22 <Munira Hurley PA-C - Last Filed: 05/10/22 10:49>
--- NOTE | 2022-05-10 10:00 | PM.EVENT ---
Event Note Date of Service: 05/10/22 Event Note: Chart reviewed patient examined. Agree with assessment and plan as outlined. Surgery notes reviewed. Will continue IV antibiotics and follow clinically Time Spent With Patient Time: Total time managing care of this patient today ____ minutes.
--- NOTE | 2022-05-10 11:16 | MHC.CM.PN ---
[facility] reveiwed, pt admitted w/gluteal abcess and cellulitis, cm met w/pt who reports he lives w/GF and will have a ride home. Pt reports he does not have a pcp or insurance and would like assistance from [facility] to complete MH valeriy. Pt erports only DME is a CPAP and pt otherwise indep w/all care and no home services, Pfizer x2 and Moderna Booster x1. Per hospitalist pt will remain inpt to cont IV abx, plan to switch to oral upon d/c.
[2022-05-10] MEDS: Calcium Carbonate 750 MG TAB.CHEW PO (13:14)
[2022-05-10 14:54] VITALS: BP 135/68; PULSE 90; RESP 18; TEMP 37.2; O2SAT 97
[2022-05-10 19:14] VITALS: BP 126/72; PULSE 98; RESP 20; TEMP 36.3; O2SAT 96
[2022-05-11 03:12] VITALS: BP 114/67; PULSE 100; RESP 16; TEMP 36.8; O2SAT 96
[2022-05-11 06:39] LABS: Vancomycin Trough 5.2 mcg/mL (10.0-20.0)
[2022-05-11 06:41] LABS: Creatinine Clr Calc Pharmacy 234.8; Estimated Glomerular Filt Rate > 60
--- NOTE | 2022-05-11 06:51 | HE.PHANOTE ---
Vancomycin Dosing Addendum Patients renal function continues to improve, crcl this morning is 234.8 mL/min. Patients level came back at 5.2 mg/L. Patient received proper load and 2 doses of 1250 mg, patient seems to be clearing medication quickly. Increased dose to 1750 mg Q12H, will monitor renal function daily. Next level to be down after 2 hours to ensure safety vs efficacy, next level due 05/12 @0600. Predicted AUC 436 mg/L/hr
--- NOTE | 2022-05-11 07:25 | PHA.MEDREC ---
Pharmacy Consult ? Medication Reconciliation Pharmacy has completed the medication reconciliation. Reviewed med rec done by nursing (Samantha). Cross-referenced claim history to confirm.
[2022-05-11 07:36] VITALS: BP 143/67; PULSE 98; RESP 15; TEMP 36.8; O2SAT 97
[2022-05-11] MEDS: vancomycin HCL 1,000 MG, vancomycin HCL 750 MG in 0.9 % Sodium Chloride 500 ML 267.5 MG IV (08:45)
[2022-05-11] MEDS: 0.9 % Sodium Chloride Flush 3 ML SYRINGE IVFLUSH (08:47)
[2022-05-11] MEDS: Acetaminophen 325 MG TABLET 650 MG PO (08:53)
--- NOTE | 2022-05-11 09:41 | PM.PNGS ---
Subjective Subjective Date of Service: 05/11/22 Interval history: feels better no fever Physical Exam Vital Signs: Vital Signs: Last Vital Signs Temp 98.3 F 05/11/22 07:36 Pulse 98 05/11/22 07:36 Resp 15 05/11/22 07:36 BP 143/67 H 05/11/22 07:36 Pulse Ox 97 05/11/22 07:36 O2 Del Method 05/11/22 07:36 BMI result Body Mass Index 55.3 Const: General: comfortable and no acute distress Resp: Effort & Inspection: normal respiratory effort Cardio: Rate: regular rate GI: Palpation (GI): Soft to palpation Back/Spine/Pelvis: Other: I and D site with no residual fluctuance or induration, packing in Objective Data Active Medications Acetaminophen (Acetaminophen 325 Mg Tablet) 650 mg PO Q6H PRN PRN Reason: Pain, Mild (Pain Scale 1-3) Last Admin: 05/11/22 08:53 Dose: 650 mg Documented By: ANGELA Calcium Carbonate (Calcium Carbonate 750 Mg Tab.Chew) 750 mg PO Q4H PRN PRN Reason: heartburn Last Admin: 05/10/22 13:14 Dose: 750 mg Documented By: MINI Docusate Sodium (Docusate Sodium 100 Mg Capsule) 100 mg PO DAILY PRN PRN Reason: Constipation Enoxaparin Sodium (Enoxaparin Sodium 40 Mg/0.4 Ml Syringe) 40 mg SUBCUT Q12H [facility] Last Admin: 05/10/22 22:18 Dose: 40 mg Documented By: BRODERICK Vancomycin HCl 1,000 mg/Vancomycin HCl 750 mg/ Sodium Chloride 535 mls @ 267.5 mls/hr IV Q12H [facility] Last Admin: 05/11/22 08:45 Dose: 267.5 mls/hr Documented By: ANGELA Ondansetron HCl (Ondansetron Hcl 4 Mg/2 Ml Vial) 4 mg IVPUSH Q8H PRN PRN Reason: Nausea and Vomiting Pharmacy Consult (Consult Rx Vancomycin Dosing) 1 each MISCELLANE DAILY PRN PRN Reason: Consult order Pharmacy Consult (Consult Rx Vancomycin Dosing) 1 each MISCELLANE DAILY PRN PRN Reason: Consult order Sodium Chloride (0.9 % Sodium Chloride Flush 3 Ml Syringe) 3 ml IVFLUSH QSHIFT [facility] Last Admin: 05/11/22 08:47 Dose: 3 ml Documented By: ANGELA Labs CBC & Chem 7: 05/10/22 05:03 05/11/22 05:42 Labs: Laboratory Results - last 24 hr 05/11/22 05/11/22 05:42 05:42 Estim Creat Clear Calc 234.8 Estimated GFR > 60 Vancomycin Trough 5.2 L Microbiology Microbiology Results: Microbiology 05/09/22 21:34 Gram Stain - Final Hip Left Routine Culture - Preliminary No growth to date. 05/09/22 18:43 Blood Culture - Preliminary Blood - Venous No growth after 24 hours. 05/09/22 18:31 Blood Culture - Preliminary Blood - Venous No growth after 24 hours. Procedures Date of Service Date of Service: 05/11/22 Progress Note: A&P Assessment and plan (1) Abscess, gluteal, left: Status: Acute Assessment and Plan: I and D done by ED i removed his packing doing well WBC high - repeat warm soaks abx tx Time Spent With Patient Time: Total time managing care of this patient today ____ minutes. Quality Stroke Does the patient have a stroke diagnosis?: No VTE Prior VTE?: No VTE Risk Level:: Medical - moderate - high VTE Device Contraindication: Treatment Not Indicated VTE Drug Contraindication: N/A - Med Ordered
[2022-05-11 10:07] LABS: Hematocrit 38.9 % (42.0-52.0); Hemoglobin 13.6 g/dl (14.0-18.0); Mean Corpuscular Hemoglobin 30.1 pg (27.0-33.0); Mean Corpuscular Volume 86.1 fL (80.0-98.0); Platelet Count 268 X10*3/uL (160-400); Red Blood Count 4.52 X10*6/uL (4.60-5.80); Red Cell Distribution Width 12.5 % (11.0-16.0); White Blood Count 19.5 X10*3/uL (4.8-10.8)
[2022-05-11] MEDS: Enoxaparin Sodium 40 MG/0.4 ML SYRINGE SUBCUT (11:30)
--- NOTE | 2022-05-11 11:51 | P.DS_ITS ---
DS: Providers Provider Date of Service: 05/11/22 Date of admission: 05/10/22 01:14 Date of discharge: 05/11/22 Primary care physician: None Physician Consults: 05/10/22 05:47 Consult to General Surgery Routine Consulting Provider: Ten Thomson Reason for consultation: asbcess?, nec fasci? cellulitis Has provider been notified: No DS: Diagnosis Discharge Diagnosis (1) Abscess, gluteal, left: Status: Acute DS: Summary Hospital Course Hospital Course: 31yoM with no significant past medical history presents to the hospital with complaints of right gluteal pain, abscess.? Patient reports that on Friday he slipped on ice and fell on his bottom, he feels that he fell on a nail or screw, he then started developing swelling in his? left gluteal region with the lump pr ogressively getting bigger and harder as well as pain.? Patient denies any fever, no chills, he reports no abdominal pain nausea or vomiting.? He did notice some drainage from the lump in his gluteal region, nonbloody.? Patient denies any chest pain, no shortness of breath, no urinary symptoms and no lower extremity edema.? On arrival to the ED patient found to have a temperature of 100.4 degrees, heart rate of 135, blood pressure stable Labs are significant for WBC count of 30.3, INR of 1.2, total bili of 1.3, labs otherwise unremarkable ? ED physician before and drainage in the ED.? After that patient underwent CT of the pelvis CT of the pelvis shows fat stranding and pockets of subcutaneous air in the left intergluteal region concerning for cellulitis, necrotizing infection is not ex cluded.? No organized drainable fluid collection or abscess.? Also enlarged inguinal lymph nodes. Hospital Course Admitted overnight to floor. White count trended down from 30,000 -16484. Culture negative thus far. Remains afebrile. Will discharge home on Augmentin and doxycycline can follow-up with Dr. Thomson in the office. Patient strongly encouraged to declare the PCP Time Spent with Patient Time attestation: Total time managing care of this patient today __30__ minutes. Discharge coordination time: Greater than 30 minutes Quality: Safe Use of Opioids Does Pt have an Active Cancer Diagnosis on the Problem List?: No Quality: Stroke Does the patient have a stroke diagnosis?: No Physical Exam Vital Signs: Vital Signs: Last Vital Signs Temp 98.3 F 05/11/22 07:36 Pulse 98 05/11/22 07:36 Resp 15 05/11/22 07:36 BP 143/67 H 05/11/22 07:36 Pulse Ox 97 05/11/22 07:36 O2 Del Method 05/11/22 07:36 BMI result Body Mass Index 55.3 Const: Other: No acute distress Resp: Other: Clear to auscultation bilaterally no rales rhonchi wheezes Cardio: Other: No S4; positive S1-S2; no S3 murmurs rubs or gallops Skin: Other: Dressing clean dry and intact Extrem: Other: No edema bilaterally DS: Data Data Completed and Pending Labs on day of discharge: Laboratory Results - last 24 hr 05/11/22 05/11/22 05/11/22 05:42 05:42 05:42 WBC 19.5 H RBC 4.52 L Hgb 13.6 L Hct 38.9 L MCV 86.1 MCH 30.1 MCHC 35.0 RDW 12.5 Plt Count 268 MPV 11.0 Absolute Nucleated RBC 0.000 Nucleated RBC % (auto) 0.0 Creatinine 0.74 Estim Creat Clear Calc 234.8 Estimated GFR > 60 Vancomycin Trough 5.2 L Preliminary micro results at discharge 05/09/22 21:34 Routine Culture - Preliminary Hip Left No growth to date. 05/09/22 18:43 Blood Culture - Preliminary Blood - Venous No growth after 24 hours. 05/09/22 18:31 Blood Culture - Preliminary Blood - Venous No growth after 24 hours. Discharge Plan Discharge Anticipated Discharge Date/Time: 05/11/22 11:46 Patient Disposition: Home, Self-Care Discharge Diagnosis: Gluteal abscess Referrals: Physician,None [Primary Care Provider] - 1 Week Discharge Medications: New amoxicillin-pot clavulanate 875-125 mg tablet 1 tab PO BID Qty: 20 0RF doxycycline hyclate 100 mg tablet 100 mg PO BID 10 Days Qty: 20 0RF oxycodone 5 mg tablet 5 mg PO Q4H PRN (Reason: pain) Qty: 20 0RF Rx Instructions: Partial Fill upon patient request. Discharge Orders: Discharge Order (Routine); Ordered 05/11/22 Ordered By: Austin Jaeger Diet: Advance to usual diet Activity on Discharge: As tolerated Stand Alone Forms: Patient Portal Discharge page Care Plan Goals: Complete course of Augmentin and doxycycline as per prescription Health Concerns: Use oxycodone sparingly for breakthrough pain Plan of Treatment: Follow-up with Dr. Thomson in 2 weeks Assessment: See discharge summary
== END 2022-05-11 12:42 | disposition home or self-care (01) | DRG 872 ==
LOC: HO.ED 05-10 00:32 → HO.EDOVER 05-10 01:41 → HO.S3 05-10 02:30
PROVIDERS: Physician Assistant Medical; Admitting Provider Internal Medicine; Emergency Provider Internal Medicine; Visit Provider Hospitalist
DX: A41.9 Sepsis, unspecified organism (principal); L03.317 Cellulitis of buttock; L02.31 Cutaneous abscess of buttock; F17.210 Nicotine dependence, cigarettes, uncomplicated; Z71.6 Tobacco abuse counseling; Z20.822 Contact with and (suspected) exposure to COVID-19
CPT/HCPCS: 0241U; 36415; 72192; 80048; 80053; 80202; 82565; 83605; 83735; 85025; 85027; 85610; 87040; 87070; 87205; 99218; 99285; J1650; J1885; J2543; J3370

== ENCOUNTER → 2022-06-07 14:20 | Outpatient (BNVA) | payer SELFPAY | PROVIDERS: Visit Provider Physician Assistant | DX: Z02.79 Encounter for issue of other medical certificate (principal) ==

== ENCOUNTER 2022-09-11 19:37 | Emergency (ER) | payer OTHER, SELFPAY ==
[2022-09-11 20:01] VITALS: BP 151/93; PULSE 88; RESP 16; TEMP 36.8; O2SAT 98; BMI 54.5
--- NOTE | 2022-09-11 20:01 | ED.ABDPAIN ---
HPI - Abdominal Pain General Chief Complaint: Abdominal Pain <Brianna Holland NP - Last Filed: 09/11/22 20:04> Stated Complaint: hernia <Brianna Holland NP - Last Filed: 09/11/22 20:04> Time Seen by Provider: 09/11/22 21:26 <Brianna Holland NP - Last Filed: 09/11/22 20:04> Source: patient <Jaswant Baptiste MD - Last Filed: 09/11/22 22:34> Mode of arrival: ambulatory <Jaswant Baptiste MD - Last Filed: 09/11/22 22:34> Limitations: no limitations <Jaswant Baptiste MD - Last Filed: 09/11/22 22:34> History of Present Illness HPI narrative: Patient with history of umbilical hernia noticed slight pain in the umbilical area and right abdominal area which happened off and on got worse since early today had small swelling but not anymore no nausea no vomiting patient moving his bowels normally <Jaswant Baptiste MD - Last Filed: 09/11/22 22:34> Related Data Home Medications: Previous Rx's Medication Instructions Recorded amoxicillin 875 mg-potassium 1 tab PO BID #20 tabs 05/11/22 clavulanate 125 mg tablet doxycycline hyclate 100 mg tablet 100 mg PO BID 10 days #20 tabs 05/11/22 oxycodone 5 mg tablet 5 mg PO Q4H PRN pain #20 tabs 05/11/22 tramadol 50 mg tablet 50 mg PO Q6H PRN pain #20 tabs 09/11/22 <Brianna Holland NP - Last Filed: 09/11/22 20:04> Allergies/Adverse Reactions: Allergies Allergy/AdvReac Type Severity Reaction Status Date / Time No Known Allergies Allergy Verified 12/19/21 19:35 [No Known Allergies*] <Brianna Holland NP - Last Filed: 09/11/22 20:04> Review of Systems Review of Systems Yes all other systems are reviewed and are negative <Jaswant Baptiste MD - Last Filed: 09/11/22 22:34> PMFSH Past Medical History Medical History: Medical History No pertinent past medical history <Brianna Holland NP - Last Filed: 09/11/22 20:04> Surgical History: Surgical History No pertinent past surgical history <Brianna Holland NP - Last Filed: 09/11/22 20:04> Family History Family History: Family History Other No family history of coronary artery disease <Brianna Holland NP - Last Filed: 09/11/22 20:04> Social History Social History: Social History Household Members: Spouse Housing: Apartment Patient Tobacco Use Status: Current everyday Tobacco user Tobacco use type: Cigarette Cigarette Packs Per Day: 1 Cigarettes Per Day: 20.0 Second Hand Smoke Exposure: No Advance Directives: No Advance Directives Information Provided: No service: No Current occupational status: unemployed <Brianna Holland NP - Last Filed: 09/11/22 20:04> Physical Exam ED Vital Signs: Vital Signs - 24 hr 09/11/22 20:01 Temperature 98.3 F Pulse Rate 88 Respiratory Rate 16 Blood Pressure 151/93 H Pulse Oximetry 98 Oxygen Delivery Method Room Air BMI result Body Mass Index 54.5 <Brianna Holland NP - Last Filed: 09/11/22 20:04> Vital Signs - 24 hr 09/11/22 20:01 Temperature 98.3 F Pulse Rate 88 Respiratory Rate 16 Blood Pressure 151/93 H Pulse Oximetry 98 Oxygen Delivery Method Room Air BMI result Body Mass Index 54.5 <Jaswant Baptiste MD - Last Filed: 09/11/22 22:34> Appearance: Alert. Oriented X3. No acute distress. Obese patient ENT: Pharynx normal. Oral Mucosa moist Neck: Normal inspection. Neck supple. CVS: Normal heart rate and rhythm. Pulses normal. Respiratory: No respiratory distress. Equal air entry bilateral, no wheezing/rales/rhonchi Abdomen: Soft and nontender. Empty umbilical hernia, Bowel sounds are present, no mass palpable, no CVA tenderness Skin: Skin warm and dry. Normal skin color. Normal skin turgor. Neuro: Oriented X 3. <Jaswant Baptiste MD - Last Filed: 09/11/22 22:34> Course Course Course Narrative: This is a rapid medical exam. deferred additional HPI, ROS, PE to primary provider. 31yo male with history of GERD, umbilicul hernia since 2016 here with complaints of abdominal pain R>L x 1 day, no nausea/vomiting/diarrhea/chills/urinary symptoms. Will obtain labs, UA VSS <Brianna Holland NP - Last Filed: 09/11/22 20:04> Medical Decision Making Medical Decision Making MDM Narrative: Patient with history of umbilical hernia chronic leukocytosis on examination patient has empty umbilical no hernia palpated <Jaswant Baptiste MD - Last Filed: 09/11/22 22:34> Lab Data [facility] Lab Attestation statement: I reviewed the patient's lab results. <Jaswant Baptiste MD - Last Filed: 09/11/22 22:34> Result Diagrams: 09/11/22 20:22 09/11/22 20:22 <Brianna Holland NP - Last Filed: 09/11/22 20:04> Labs: Lab Results 09/11/22 09/11/22 Range/Units 20:22 20:22 WBC 13.4 H (4.8-10.8) X10*3/uL RBC 5.42 (4.60-5.80) X10*6/uL Hgb 16.3 (14.0-18.0) g/dl Hct 45.6 (42.0-52.0) % MCV 84.1 (80.0-98.0) fL MCH 30.1 (27.0-33.0) pg MCHC 35.7 (31.0-36.0) g/dl RDW 13.1 (11.0-16.0) % Plt Count 303 (160-400) X10*3/uL MPV 11.0 (9.4-12.4) fL Immature Gran % (Auto) 0.4 (0.0-0.4) % Neut % (Auto) 68.5 (45-73) % Lymph % (Auto) 23.1 (20-40) % Snyder % (Auto) 5.4 (2-11) % Eos % (Auto) 2.2 (0-4) % Baso % (Auto) 0.4 (0-2) % Lymph # (Auto) 3.1 (1.2-4.9) X10*3/uL Snyder # (Auto) 0.7 (0.1-1.2) X10*3/uL Eos # (Auto) 0.3 (0.0-0.4) X10*3/uL Baso # (Auto) 0.1 (0.0-0.2) X10*3/uL Abs Immat Gran (auto) 0.06 H (0.00-0.03) X10*3/uL Absolute Neuts (auto) 9.2 H (2.0-8.3) x10*3/uL Absolute Nucleated RBC 0.000 (0.0-0.012) X10*3/uL Nucleated RBC % (auto) 0.0 (0.0-0.2) /100WBC Sodium 143 (135-145) mmol/L Potassium 4.3 D (3.3-5.1) mmol/L Chloride 107 (96-108) mmol/L Carbon Dioxide 28 (22-29) mmol/L Anion Gap 12 (12-20) BUN 15 (9-16) mg/dL Creatinine 0.95 (0.5-1.4) mg/dL Estim Creat Clear Calc 181.3 Estimated GFR > 60 Random Glucose 97 (60-115) mg/dL Calcium 9.6 D (8.4-10.2) mg/dL Total Bilirubin 0.4 (0.0-1.0) mg/dL Direct Bilirubin 0.1 (0.0-0.5) mg/dL AST 25 (5-37) U/L ALT 44 H (0-40) U/L Alkaline Phosphatase 73 (39-117) U/L Total Protein 7.3 (6.5-8.0) g/dL Albumin 4.4 (3.5-5.0) g/dL Lipase 22 (8-78) U/L <Brianna Holland NP - Last Filed: 09/11/22 20:04> Lab Results 09/11/22 09/11/22 Range/Units 20:22 20:22 WBC 13.4 H (4.8-10.8) X10*3/uL RBC 5.42 (4.60-5.80) X10*6/uL Hgb 16.3 (14.0-18.0) g/dl Hct 45.6 (42.0-52.0) % MCV 84.1 (80.0-98.0) fL MCH 30.1 (27.0-33.0) pg MCHC 35.7 (31.0-36.0) g/dl RDW 13.1 (11.0-16.0) % Plt Count 303 (160-400) X10*3/uL MPV 11.0 (9.4-12.4) fL Immature Gran % (Auto) 0.4 (0.0-0.4) % Neut % (Auto) 68.5 (45-73) % Lymph % (Auto) 23.1 (20-40) % Snyder % (Auto) 5.4 (2-11) % Eos % (Auto) 2.2 (0-4) % Baso % (Auto) 0.4 (0-2) % Lymph # (Auto) 3.1 (1.2-4.9) X10*3/uL Snyder # (Auto) 0.7 (0.1-1.2) X10*3/uL Eos # (Auto) 0.3 (0.0-0.4) X10*3/uL Baso # (Auto) 0.1 (0.0-0.2) X10*3/uL Abs Immat Gran (auto) 0.06 H (0.00-0.03) X10*3/uL Absolute Neuts (auto) 9.2 H (2.0-8.3) x10*3/uL Absolute Nucleated RBC 0.000 (0.0-0.012) X10*3/uL Nucleated RBC % (auto) 0.0 (0.0-0.2) /100WBC Sodium 143 (135-145) mmol/L Potassium 4.3 D (3.3-5.1) mmol/L Chloride 107 (96-108) mmol/L Carbon Dioxide 28 (22-29) mmol/L Anion Gap 12 (12-20) BUN 15 (9-16) mg/dL Creatinine 0.95 (0.5-1.4) mg/dL Estim Creat Clear Calc 181.3 Estimated GFR > 60 Random Glucose 97 (60-115) mg/dL Calcium 9.6 D (8.4-10.2) mg/dL Total Bilirubin 0.4 (0.0-1.0) mg/dL Direct Bilirubin 0.1 (0.0-0.5) mg/dL AST 25 (5-37) U/L ALT 44 H (0-40) U/L Alkaline Phosphatase 73 (39-117) U/L Total Protein 7.3 (6.5-8.0) g/dL Albumin 4.4 (3.5-5.0) g/dL Lipase 22 (8-78) U/L <Jaswant Baptiste MD - Last Filed: 09/11/22 22:34> Medications Administered Discontinued Medications Generic Name Dose Route Start Last Admin Trade Name Freq PRN Reason Stop Dose Admin Tramadol HCl 50 mg 09/11/22 21:44 09/11/22 22:05 Tramadol Hcl 50 Mg Tablet PO 09/11/22 21:45 50 mg ONCE ONE Administration <Brianna Holland NP - Last Filed: 09/11/22 20:04> Medications Administered Discontinued Medications Generic Name Dose Route Start Last Admin Trade Name Freq PRN Reason Stop Dose Admin Tramadol HCl 50 mg 09/11/22 21:44 09/11/22 22:05 Tramadol Hcl 50 Mg Tablet PO 09/11/22 21:45 50 mg ONCE ONE Administration <Jaswant Baptiste MD - Last Filed: 09/11/22 22:34> Discharge Plan Discharge Clinical Impression: Reducible umbilical hernia <Brianna Holland NP - Last Filed: 09/11/22 20:04> Patient Disposition: Home, Self-Care <Brianna Holland NP - Last Filed: 09/11/22 20:04> Instructions: Umbilical Hernia (ED) <Brianna Holland NP - Last Filed: 09/11/22 20:04> Additional Instructions: Avoid straining Follow-up with surgeon Report to the ER if worsening of the pain or swelling <Brianna Holland NP - Last Filed: 09/11/22 20:04> Prescriptions: New tramadol 50 mg tablet 50 mg PO Q6H PRN (Reason: pain) Qty: 20 0RF No Action amoxicillin-pot clavulanate 875-125 mg tablet 1 tab PO BID Qty: 20 0RF doxycycline hyclate 100 mg tablet 100 mg PO BID 10 Days Qty: 20 0RF oxycodone 5 mg tablet 5 mg PO Q4H PRN (Reason: pain) Qty: 20 0RF Rx Instructions: Partial Fill upon patient request. <Brianna Holland NP - Last Filed: 09/11/22 20:04> Referrals: Ten Thomson MD [Physician] - 2 weeks <Brianna Holland NP - Last Filed: 09/11/22 20:04> Interventions: ED Discharge Assessment Last Done: 09/11/22 22:11 <Brianna Holland NP - Last Filed: 09/11/22 20:04> Discharge Date/Time: 09/11/22 22:13 <Brianna Holland NP - Last Filed: 09/11/22 20:04>
[2022-09-11 20:28] LABS: MANUAL DIFF FLAG NO
[2022-09-11 20:29] LABS: Basophils Absolute Auto 0.1 X10*3/uL (0.0-0.2); Basophils Percent Auto 0.4 % (0-2); Eosinophils Absolute Auto 0.3 X10*3/uL (0.0-0.4); Eosinophils Percent Auto 2.2 % (0-4); Hematocrit 45.6 % (42.0-52.0); Hemoglobin 16.3 g/dl (14.0-18.0); Imm Gran Abs Auto 0.06 X10*3/uL (0.00-0.03); Imm Gran Pct Auto 0.4 % (0.0-0.4); Lymphocytes Absolute Auto 3.1 X10*3/uL (1.2-4.9); Lymphocytes Percent Auto 23.1 % (20-40); Mean Corpuscular HGB Conc 35.7 g/dl (31.0-36.0); Mean Corpuscular Hemoglobin 30.1 pg (27.0-33.0); Mean Corpuscular Volume 84.1 fL (80.0-98.0); Monocytes Absolute Auto 0.7 X10*3/uL (0.1-1.2); Monocytes Percent Auto 5.4 % (2-11); Neutrophils Absolute Auto 9.2 x10*3/uL (2.0-8.3); Neutrophils Percent Auto 68.5 % (45-73); Platelet Count 303 X10*3/uL (160-400); Red Blood Count 5.42 X10*6/uL (4.60-5.80); Red Cell Distribution Width 13.1 % (11.0-16.0); White Blood Count 13.4 X10*3/uL (4.8-10.8)
[2022-09-11 20:49] LABS: Alanine Aminotransferase 44 U/L (0-40); Albumin Level 4.4 g/dL (3.5-5.0); Alkaline Phosphatase 73 U/L (39-117); Anion Gap 12 (12-20); Aspartate Amino Transferase 25 U/L (5-37); Bilirubin Direct 0.1 mg/dL (0.0-0.5); Bilirubin Total 0.4 mg/dL (0.0-1.0); Blood Urea Nitrogen 15 mg/dL (9-16); Calcium 9.6 mg/dL (8.4-10.2); Carbon Dioxide 28 mmol/L (22-29); Chloride 107 mmol/L (96-108); Creatinine Clr Calc Pharmacy 181.3; Estimated Glomerular Filt Rate > 60; Glucose Random 97 mg/dL (60-115); Lipase 22 U/L (8-78); Potassium 4.3 mmol/L (3.3-5.1); Sodium 143 mmol/L (135-145); Total Protein 7.3 g/dL (6.5-8.0)
--- OUTSIDE RECORDS SUMMARY | 2022-09-11 20:59 | XMS_ITS | Continuity of Care Document ---
Author Name Unknown Organization [facility] Address [address] [place] [id number]- Care Team Providers Care Steward/Stewardess Bath Name Role Phone Not on Staff, PCP Primary Care Physician Unavail able Encounter [facility] [place] Date(s): 04/02/19 - 07/31/19 [facility] [address] [id number]- [facility] Attending Physician: Asha Li MD Admitting Physician: Asha Li MD Allergies, Adverse Reactions, Alerts No Known Medication Allergies Medications BuPROpion = 150 mg, By Mouth, 0 Refills, Maintenance, 01/18/19 10:06:25 EDT Start Date: 01/18/19 Status: Ordered CPAP Machine See Instructions, # 1 each, Maintenance, AutoCPAP 11-16, 01/18/19 15:30:34 EDT, Compound Start Date: 01/18/19 Status: Ordered Melatonin = 5 mg, Daily at bedtime, 0 Refills, Maintenance, 01/18/19 10:07:13 EDT Start Date: 01/18/19 Status: Ordered Ranitidine = 300 mg, 0 Refills, Maintenance, 01/18/19 10:06:12 EDT Start Date: 01/18/19 Status: Ordered Problem List Condition Effective Dates Status Health Status Inform ant Obstructive sleep apnea(Confirmed) Active
--- OUTSIDE RECORDS SUMMARY | 2022-09-11 20:59 | XMS_ITS | Continuity of Care Document ---
Author Name Unknown Organization [facility] Address [address] [place] [id number]- Care Team Providers Care Early Childhood Education Instructor Name Role Phone Not on Staff, PCP Primary Care Physician Unavail able En[place] [facility] [place] Date(s): 07/06/19 - 07/16/19 [facility] [address] [place] [id number] [facility] Attending Physician: Filippo Foster Admitting Physician: Filippo Foster Referring Physician: Filippo Foster Allergies, Adverse Reactions, Alerts No Known Medication [...]
[2022-09-11] MEDS: traMADoL HCL 50 MG TABLET PO (22:05)
== END 2022-09-11 22:13 | disposition home or self-care (01) ==
PROVIDERS: Nurse Practitioner Family; Emergency Provider Internal Medicine
DX: K42.9 Umbilical hernia without obstruction or gangrene (principal); Z79.899 Other long term (current) drug therapy
CPT/HCPCS: 36415; 80048; 80076; 83690; 85025; 99283

== ENCOUNTER 2022-09-26 13:01 | Outpatient (REF) | payer OTHER, SELFPAY ==
[2022-09-26 14:29] LABS: MANUAL DIFF FLAG NO
[2022-09-26 15:06] LABS: Basophils Absolute Auto 0.1 X10*3/uL (0.0-0.2); Basophils Percent Auto 0.5 % (0-2); Eosinophils Absolute Auto 0.3 X10*3/uL (0.0-0.4); Eosinophils Percent Auto 2.3 % (0-4); Hemoglobin 16.9 g/dl (14.0-18.0); Imm Gran Abs Auto 0.05 X10*3/uL (0.00-0.03); Imm Gran Pct Auto 0.5 % (0.0-0.4); Lymphocytes Absolute Auto 3.2 X10*3/uL (1.2-4.9); Lymphocytes Percent Auto 29.2 % (20-40); Mean Corpuscular Hemoglobin 30.2 pg (27.0-33.0); Mean Corpuscular Volume 83.9 fL (80.0-98.0); Mean Platelet Volume 11.6 fL (9.4-12.4); Monocytes Absolute Auto 0.9 X10*3/uL (0.1-1.2); Monocytes Percent Auto 7.7 % (2-11); Neutrophils Absolute Auto 6.6 x10*3/uL (2.0-8.3); Neutrophils Percent Auto 59.8 % (45-73); Platelet Count 306 X10*3/uL (160-400); Red Cell Distribution Width 12.6 % (11.0-16.0); White Blood Count 11.1 X10*3/uL (4.8-10.8)
[2022-09-26 15:15] LABS: Appearance Urine Clear; Color Urine Yellow; Glucose Urine UA Negative (Negative); Leukocyte Esterase Urine Negative (Negative); Nitrite Urine Negative (Negative); Urine Blood Negative (Negative); Urine Ketones Negative (Negative); Urine Protein Negative (Neg-Trace)
[2022-09-26 15:20] LABS: Estimated Average Glucose 94 mg/dL; Hemoglobin A1c % 4.9 %
[2022-09-26 15:39] LABS: Alanine Aminotransferase 43 U/L (0-40); Albumin Level 4.4 g/dL (3.5-5.0); Alkaline Phosphatase 66 U/L (39-117); Anion Gap 14 (12-20); Aspartate Amino Transferase 25 U/L (5-37); Bilirubin Total 0.4 mg/dL (0.0-1.0); Blood Urea Nitrogen 10 mg/dL (9-16); C Reactive Protein 0.58 mg/dL (< or = 0.50); Calcium 9.6 mg/dL (8.4-10.2); Carbon Dioxide 26 mmol/L (22-29); Chloride 105 mmol/L (96-108); Estimated Glomerular Filt Rate > 60; Glucose Random 87 mg/dL (60-115); Potassium 4.2 mmol/L (3.3-5.1); Sodium 141 mmol/L (135-145); Total Protein 7.5 g/dL (6.5-8.0)
[2022-09-26 15:52] LABS: Amphetamine Screen Urine Not Detected (Not Detect); Barbiturates, Urine Not Detected (Not Detect); Benzodiazepines Screen Urine Not Detected (Not Detect); Cannabinoid Screen Urine Not Detected (Not Detect); Cocaine Screen Urine Not Detected (Not Detect); Fentanyl, urine Not Detected (Not Detect); Opiate Screen Urine Not Detected (Not Detect); Phencyclidine Screen Urine Not Detected (Not Detect)
[2022-10-02 01:13] LABS: Cotinine, U 780 ng/mL; Nicotine, U 156 ng/mL
== END 2022-09-26 13:02 | disposition home or self-care (01) ==
LOC: HO.LAB 13:01
PROVIDERS: Absent Provider Surgery; Visit Provider Surgery
DX: R10.9 Unspecified abdominal pain (principal); F32.A Depression, unspecified; D72.829 Elevated white blood cell count, unspecified; E66.01 Morbid (severe) obesity due to excess calories; Z68.43 Body mass index [BMI] 50.0-59.9, adult; F12.90 Cannabis use, unspecified, uncomplicated; G47.33 Obstructive sleep apnea (adult) (pediatric); Z72.0 Tobacco use
CPT/HCPCS: 80053; 80307; 80323; 81003; 83036; 84134; 85025; 86140; 99202

== ENCOUNTER 2022-10-24 08:07 | Outpatient (REF) | payer OTHER, SELFPAY ==
--- NOTE | ~2022-10-24 | CT_ITS ---
EXAMINATION: CT ABDOMEN AND PELVIS WITH CONTRAST CLINICAL INFORMATION: Abdominal pain. Rule out hernia. COMPARISON: Previous CT of the pelvis April 2016 TECHNIQUE: Multidetector volumetric images were obtained from the superior aspect of the liver through the pubic symphysis following administration 85 mL of Omnipaque 350 intravenous contrast and Valsalva maneuver. Sagittal and coronal reformatted images were obtained on the technologist's workstation. Oral contrast: Yes This CT examination was performed using dose optimization techniques as appropriate, variously including the following: *Automated exposure control *Adjustment of mA and/or kV according to patient size (this includes techniques or standardized protocols for targeted exams where dose is matched to indication/reason for exam; i.e. extremities or head) *Use of iterative reconstruction technique DLP: 1283 mGy-cm FINDINGS: LUNG BASES: The visualized lung bases are unremarkable. LIVER, GALLBLADDER, AND BILIARY TREE: The liver is normal in size, shape, and attenuation. No focal hepatic lesion or biliary ductal dilatation is present. The gallbladder is unremarkable with no evidence of radiopaque gallstones, gallbladder wall thickening, or obvious pericholecystic inflammatory changes. PANCREAS: Unremarkable. SPLEEN: Unremarkable. ADRENAL GLANDS: Unremarkable. KIDNEYS AND URETERS: 2 small 1 cm low-attenuation lesions in the upper pole of the right kidney probably representing cysts. No imaging follow-up recommended. Small 1 to 2 mm nonobstructing stone in the lower pole of the right kidney. Kidneys are otherwise normal. BLADDER: Unremarkable. GASTROINTESTINAL TRACT: The small and large bowel are unremarkable. The appendix is unremarkable. ABDOMINAL WALL: Diastasis of the rectus muscles and small umbilical hernia containing fat. LYMPH NODES: Shotty bilateral inguinal and retroperitoneal lymphadenopathy. No enlarged lymph nodes. VASCULAR: Unremarkable. PELVIC VISCERA: Unremarkable. OSSEOUS STRUCTURES: Unremarkable. CT/CT abdomen pelvis w IV con IMPRESSION: Diastasis of the rectus muscles and small umbilical hernia containing fat. Fatty liver. Small nonobstructing right renal stone.. Fleischner guidelines were followed.
[2022-10-24] MEDS: iohexoL 350 MG/ML 100 ML INFUS..BTL IV (10:44)
[2022-10-24] MEDS: Barium Sulfate Oral (Vanilla) 450 ML ORAL.SUSP 900 ML PO (10:45)
== END 2022-10-24 08:08 | disposition home or self-care (01) ==
LOC: HO.CT 08:07
PROVIDERS: Visit Provider Surgery
DX: R10.9 Unspecified abdominal pain (principal); D72.829 Elevated white blood cell count, unspecified
CPT/HCPCS: 74177; Q9967

== ENCOUNTER → 2022-11-04 14:13 | Outpatient (BNVA) | payer OTHER, SELFPAY | PROVIDERS: PCP Internal Medicine; Visit Provider Surgery | DX: K42.9 Umbilical hernia without obstruction or gangrene (principal); E66.01 Morbid (severe) obesity due to excess calories; F32.A Depression, unspecified; F12.90 Cannabis use, unspecified, uncomplicated; G47.33 Obstructive sleep apnea (adult) (pediatric); D72.829 Elevated white blood cell count, unspecified; Z68.43 Body mass index [BMI] 50.0-59.9, adult | CPT/HCPCS: 99212 ==

== ENCOUNTER 2022-11-04 14:46 | Emergency (ER) | payer OTHER, SELFPAY ==
--- NOTE | ~2022-11-04 | CT_ITS ---
EXAMINATION: CT HEAD WITHOUT CONTRAST CLINICAL INFORMATION: Headache. Hypertension. COMPARISON: None available. TECHNIQUE: Contiguous axial imaging was performed from the skull base to vertex without intravenous administration of contrast. This CT examination was performed using dose optimization techniques as appropriate, variously including the following: *Automated exposure control *Adjustment of mA and/or kV according to patient size (this includes techniques or standardized protocols for targeted exams where dose is matched to indication/reason for exam; i.e. extremities or head) *Use of iterative reconstruction technique DLP: 771 mGy-cm FINDINGS: There is no evidence of acute intracranial hemorrhage or territorial infarction. No mass effect or midline shift is seen. Spivey to white matter differentiation is preserved. No extra-axial fluid collections are identified. No hydrocephalus. The osseous structures and soft tissues are normal. The mastoid air cells and visualized portions of the paranasal sinuses are well aerated. CT/CT head/brain wo IV con IMPRESSION: No acute intracranial pathology.
[2022-11-04 15:12] VITALS: BP 190/100; PULSE 103; RESP 18; TEMP 36.6; O2SAT 97; BMI 58.4
--- NOTE | 2022-11-04 15:16 | ECG_ITS ---
Test Reason : hypertension Blood Pressure : / mmHG Vent. Rate : 101 BPM Atrial Rate : 101 BPM P-R Int : 208 ms QRS Dur : 092 ms QT Int : 340 ms P-R-T Axes : 057 031 053 degrees QTc Int : 440 ms Sinus tachycardia Low voltage QRS Borderline ECG No previous ECGs available Referred By: Generic ED Physician Electronically Signed By:PERLA COFFEY MD
[2022-11-04 15:35] LABS: MANUAL DIFF FLAG NO
[2022-11-04 15:37] LABS: Basophils Percent Auto 0.3 % (0-2); Eosinophils Absolute Auto 0.3 X10*3/uL (0.0-0.4); Eosinophils Percent Auto 2.2 % (0-4); Hematocrit 44.6 % (42.0-52.0); Hemoglobin 16.1 g/dl (14.0-18.0); Imm Gran Abs Auto 0.04 X10*3/uL (0.00-0.03); Imm Gran Pct Auto 0.3 % (0.0-0.4); Lymphocytes Absolute Auto 3.9 X10*3/uL (1.2-4.9); Lymphocytes Percent Auto 29.3 % (20-40); Mean Corpuscular HGB Conc 36.1 g/dl (31.0-36.0); Mean Corpuscular Hemoglobin 30.4 pg (27.0-33.0); Mean Corpuscular Volume 84.2 fL (80.0-98.0); Monocytes Absolute Auto 0.8 X10*3/uL (0.1-1.2); Monocytes Percent Auto 6.1 % (2-11); Neutrophils Absolute Auto 8.2 x10*3/uL (2.0-8.3); Neutrophils Percent Auto 61.8 % (45-73); Platelet Count 310 X10*3/uL (160-400); Red Cell Distribution Width 12.8 % (11.0-16.0); White Blood Count 13.2 X10*3/uL (4.8-10.8)
[2022-11-04 15:52] LABS: Alanine Aminotransferase 36 U/L (0-40); Albumin Level 4.5 g/dL (3.5-5.0); Alkaline Phosphatase 68 U/L (39-117); Anion Gap 14 (12-20); Aspartate Amino Transferase 23 U/L (5-37); Bilirubin Direct 0.1 mg/dL (0.0-0.5); Bilirubin Total 0.5 mg/dL (0.0-1.0); Blood Urea Nitrogen 14 mg/dL (9-16); Calcium 9.6 mg/dL (8.4-10.2); Carbon Dioxide 24 mmol/L (22-29); Chloride 108 mmol/L (96-108); Estimated Glomerular Filt Rate > 60; Glucose Random 95 mg/dL (60-115); Magnesium 2.1 mg/dL (1.6-2.6); Potassium 4.3 mmol/L (3.3-5.1); Sodium 142 mmol/L (135-145); Total Protein 7.3 g/dL (6.5-8.0)
[2022-11-04 16:00] LABS: Troponin-I High Sensitivity < 2.7 ng/L (<3.5-35.0)
--- NOTE | 2022-11-04 17:48 | ED.GENADULT ---
HPI - General Adult General Chief complaint: General Medical Stated complaint: Hypertension Time Seen by Provider: 11/04/22 17:35 History of Present Illness HPI narrative: Patient is a 32-year-old male was at the surgeon's office for a office visit. Patient is planning to get umbilical hernia surgery repair. Presented today with having elevated blood pressure with patient's surgeon. It was 200/100. There is no fever no chills. No chest pain or shortness of breath. Patient had minimal headache. Positive history of anxiety. In compliant with his medication. Does not have a primary that he sees on a regular basis. Patient had 1 scheduled but has not seen them yet. Related Data Home Medications Medication Instructions Recorded Confirmed hydroxyzine HCl 25 mg tablet 25 mg PO TID PRN anxiety 09/26/22 omeprazole 10 mg capsule,delayed 10 mg PO DAILY 09/26/22 09/26/22 release escitalopram oxalate 5 mg tablet 5 mg PO DAILY 11/04/22 Previous Rx's Medication Instructions Recorded tramadol 50 mg tablet 50 mg PO Q6H PRN pain #20 tabs 09/11/22 Allergies Allergy/AdvReac Type Severity Reaction Status Date / Time No Known Allergies Allergy Verified 11/04/22 15:12 [No Known Allergies*] Review of Systems Review of Systems: No chest pain or shortness breath no dizziness or nausea no vomiting Yes all other systems are reviewed and are negative [facility] Past Medical History Attestation statement: The following information was validated with the patient. Medical History No pertinent past medical history Surgical History No pertinent past surgical history Family History Family History Other No family history of coronary artery disease Social History Social History Household Members: Spouse Housing: Apartment Patient Tobacco Use Status: Current everyday Tobacco user Tobacco use type: Cigarette Cigarette Packs Per Day: 1 Cigarettes Per Day: 20.0 Second Hand Smoke Exposure: No service: No Current occupational status: unemployed Physical Exam ED Vital Signs: Vital Signs - 24 hr 11/04/22 15:12 11/04/22 17:50 Temperature 97.9 F 98.2 F Pulse Rate 103 H 100 Respiratory Rate 18 16 Blood Pressure 190/100 H 147/76 H Pulse Oximetry 97 99 Oxygen Delivery Method Room Air Room Air BMI result Body Mass Index 58.4 Appearance: Alert. Oriented X3. No acute distress. Eyes: Pupils equal, round and reactive to light. ENT: Pharynx normal. Neck: Normal inspection. Neck supple. No lymph nodes noted. No crepitus CVS: Normal heart rate and rhythm. Pulses normal. Normal S1 and S2 Respiratory: No respiratory distress. Breath sounds normal. No Wheezing. No rales Abdomen: Soft and nontender. No rigidity. No distention. good BS x4 Skin: Skin warm and dry. Normal skin color. Normal skin turgor. Extremities: No lower extremity edema. Neurovascular intact to all extremities. No Lacerations. No Rash Neuro: Oriented X 3. No motor deficit. No sensory deficit. Moving all extermities. No slurred speech Medical Decision Making Medical Decision Making [facility] Narrative: Patient's blood pressure on recheck in the emergency department is 140's over 80. No symptoms. Patient's electrolytes are unremarkable. My interpretation of patient's EKG showed a sinus rhythm heart rate is 100 [place] QRS QT within normal limits is no acute ST segment elevation. Differential Diagnosis Differential Diagnoses: The differential diagnosis associated with the presentation includes Hypertension, anxiety Admission/Observation Consideration of admission/observation: Escalation of care including admission/observation considered Patient's blood pressure came down nicely with time and correct blood pressure cuff. Will not be to be admitted Consult Healthcare Provider Management of the patient was discussed with: [employer] Will contact patient's primary physician for close follow-up repeat blood pressure check in 2 days Lab Data [facility] Lab Attestation statement: I reviewed the patient's lab results. 11/04/22 15:32 11/04/22 15:32 Labs: Lab Results 11/04/22 11/04/22 11/04/22 Range/Units 15:32 15:32 15:32 WBC 13.2 H (4.8-10.8) X10*3/uL RBC 5.30 (4.60-5.80) X10*6/uL Hgb 16.1 (14.0-18.0) g/dl Hct 44.6 (42.0-52.0) % MCV 84.2 (80.0-98.0) fL MCH 30.4 (27.0-33.0) pg MCHC 36.1 H (31.0-36.0) g/dl RDW 12.8 (11.0-16.0) % Plt Count 310 (160-400) X10*3/uL MPV 11.0 (9.4-12.4) fL Immature Gran % (Auto) 0.3 (0.0-0.4) % Neut % (Auto) 61.8 (45-73) % Lymph % (Auto) 29.3 (20-40) % Rowan % (Auto) 6.1 (2-11) % Eos % (Auto) 2.2 (0-4) % Baso % (Auto) 0.3 (0-2) % Lymph # (Auto) 3.9 (1.2-4.9) X10*3/uL Rowan # (Auto) 0.8 (0.1-1.2) X10*3/uL Eos # (Auto) 0.3 (0.0-0.4) X10*3/uL Baso # (Auto) 0.0 (0.0-0.2) X10*3/uL Abs Immat Gran (auto) 0.04 H (0.00-0.03) X10*3/uL Absolute Neuts (auto) 8.2 (2.0-8.3) x10*3/uL Absolute Nucleated RBC 0.000 (0.0-0.012) X10*3/uL Nucleated RBC % (auto) 0.0 (0.0-0.2) /100WBC Sodium 142 (135-145) mmol/L Potassium 4.3 (3.3-5.1) mmol/L Chloride 108 (96-108) mmol/L Carbon Dioxide 24 (22-29) mmol/L Anion Gap 14 (12-20) BUN 14 (9-16) mg/dL Creatinine 0.86 (0.5-1.4) mg/dL Estim Creat Clear Calc 201.0 Estimated GFR > 60 Random Glucose 95 (60-115) mg/dL Calcium 9.6 (8.4-10.2) mg/dL Magnesium 2.1 (1.6-2.6) mg/dL Total Bilirubin 0.5 (0.0-1.0) mg/dL Direct Bilirubin 0.1 (0.0-0.5) mg/dL AST 23 (5-37) U/L ALT 36 (0-40) U/L Alkaline Phosphatase 68 (39-117) U/L Troponin I High Sens < 2.7 (<3.5-35.0) ng/L Total Protein 7.3 (6.5-8.0) g/dL Albumin 4.5 (3.5-5.0) g/dL Independent Interpretation I performed an independent interpretation of an: EKG Interpretation: Sinus rhythm heart rate is 100 NJ QRS QT within normal limits is no acute ST segment elevation. Radiology Impression Discussion of test interpretation with radiology: I have reviewed the radiologist's reading. Chronic Conditions Anxiety Discharge Plan Discharge Clinical Impression: Hypertension Patient Disposition: Home, Self-Care Instructions: Chronic Hypertension (ED) Prescriptions: No Action tramadol 50 mg tablet 50 mg PO Q6H PRN (Reason: pain) Qty: 20 0RF escitalopram oxalate 5 mg tablet 5 mg PO DAILY omeprazole 10 mg capsule,delayed release(DR/EC) 10 mg PO DAILY hydroxyzine HCl 25 mg tablet 25 mg PO TID PRN (Reason: anxiety) Referrals: eTe Burk MD [Primary Care Provider] - 11/06/22 (Please follow-up with your doctor in 2 days for repeat blood pressure check)
[2022-11-04 17:50] VITALS: BP 147/76; PULSE 100; RESP 16; TEMP 36.8; O2SAT 99
== END 2022-11-04 18:05 | disposition home or self-care (01) ==
LOC: HO.ED 18:03
PROVIDERS: Emergency Provider Emergency Medicine Emergency Medical Services; PCP Internal Medicine
DX: I10 Essential (primary) hypertension (principal); K42.9 Umbilical hernia without obstruction or gangrene
CPT/HCPCS: 36415; 70450; 80048; 80076; 83735; 84484; 85025; 93005; 99284

== ENCOUNTER → 2023-07-31 14:33 | Outpatient (BNVA) | payer SELFPAY | PROVIDERS: PCP Internal Medicine; Visit Provider Physician Assistant | DX: Z02.79 Encounter for issue of other medical certificate (principal) ==